=== PATIENT | male | born 1935 | race Caucasian/White ===

== ENCOUNTER → 2017-08-22 | Outpatient (CLI) | payer OTHER ==
[~2017-08-22] MED LIST: ALBU90OI INH; Atrovent Inha12.9 GM INH; DIPH50; ENAL5; PRED10 PO; Zofran Odt4 MG PO
[2017-08-22 13:32] LABS: BASOPHILS ABSOLUTE AUTO 0.06 K/mm3 (0.00-0.23); BASOPHILS PERCENT AUTO 1 % (0-2); EOSINOPHILS ABSOLUTE AUTO 0.13 K/mm3 (0.00-0.68); EOSINOPHILS PERCENT AUTO 2 % (0-6); Hematocrit 45.5 % (37.0-53.0); Hemoglobin 14.7 g/dL (13.5-17.5); IMMATURE GRAN ABSOLUTE AUTO 0.03 K/mm3 (0.00-0.10); IMMATURE GRAN PERCENT AUTO 0 % (0-1); LYMPHOCYTES ABSOLUTE AUTO 1.46 K/mm3 (0.84-5.20); LYMPHOCYTES PERCENT AUTO 16 % (21-46); MONOCYTES ABSOLUTE AUTO 0.79 K/mm3 (0.16-1.47); MONOCYTES PERCENT AUTO 9 % (4-13); Mean Corpuscular HGB 30.8 pg (26.0-34.0); Mean Corpuscular HGB Conc 32.3 g/dL (31.5-36.5); Mean Corpuscular Volume 95 fL (80-100); Mean Platelet Volume 10.1 fL (9.1-12.4); NEUTROPHILS ABSOLUTE AUTO 6.41 K/mm3 (1.96-9.15); NEUTROPHILS PERCENT AUTO 72 % (41-73); Platelet Count 245 K/mm3 (150-400); RDW Coefficient Variation 12.8 % (11.7-14.2); RDW Standard Deviation 45.1 fL (35.1-46.3); Red Blood Cell Count 4.78 M/mm3 (4.30-5.90); White Blood Cell Count 8.88 K/mm3 (4.00-11.30)
[2017-08-22 15:32] LABS: Alanine Aminotransfer (ALT/SGP 28 U/L (12-78); Albumin, Blood 3.4 g/dL (3.4-5.0); Albumin/Globulin Ratio 1.2 (0.8-1.8); Alk Phos 75 U/L (50-136); Anion Gap 5 mmol/L (6-16); Aspartate Aminotrans (AST/SGOT 20 U/L (12-37); Bilirubin, Total 0.7 mg/dL (0.1-1.0); Blood Urea Nitrogen 7 mg/dL (8-24); CO2, Blood 33 mmol/L (21-32); Calcium, Blood 8.7 mg/dL (8.5-10.1); Chloride, Blood 109 mmol/L (98-108); Creatinine, Blood 0.99 mg/dL (0.60-1.20); Globulin, Blood 2.8 g/dL (2.2-4.0); Glomerular Filtration Rate >60 (60-); Glucose, Blood 96 mg/dL (70-99); Potassium, Blood 3.8 mmol/L (3.5-5.5); Sodium, Blood 147 mmol/L (136-145); Total Protein, Blood 6.2 g/dL (6.4-8.2)
== END | disposition home or self-care (01) ==
LOC: LAB 09:51
PROVIDERS: Hospitalist
DX: R06.02 Shortness of breath (principal)
CPT/HCPCS: 80053; 85025

== ENCOUNTER 2017-09-04 19:43 | Emergency (ER) | payer OTHER ==
[~2017-09-04] VITALS: Ht 165.1 cm; Wt 56.7 kg
[~2017-09-04 19:43] MED LIST changes: -Zofran Odt4 MG PO
[2017-09-04 20:05] LABS: BASOPHILS ABSOLUTE AUTO 0.06 K/mm3 (0.00-0.23); BASOPHILS PERCENT AUTO 0 % (0-2); EOSINOPHILS ABSOLUTE AUTO 0.07 K/mm3 (0.00-0.68); EOSINOPHILS PERCENT AUTO 0 % (0-6); Hematocrit 46.3 % (37.0-53.0); Hemoglobin 14.8 g/dL (13.5-17.5); IMMATURE GRAN ABSOLUTE AUTO 0.09 K/mm3 (0.00-0.10); IMMATURE GRAN PERCENT AUTO 1 % (0-1); LYMPHOCYTES ABSOLUTE AUTO 1.26 K/mm3 (0.84-5.20); LYMPHOCYTES PERCENT AUTO 7 % (21-46); MONOCYTES ABSOLUTE AUTO 1.42 K/mm3 (0.16-1.47); MONOCYTES PERCENT AUTO 8 % (4-13); Mean Corpuscular HGB 30.7 pg (26.0-34.0); Mean Corpuscular Volume 96 fL (80-100); Mean Platelet Volume 9.6 fL (9.1-12.4); NEUTROPHILS ABSOLUTE AUTO 14.15 K/mm3 (1.96-9.15); NEUTROPHILS PERCENT AUTO 83 % (41-73); Platelet Count 244 K/mm3 (150-400); RDW Standard Deviation 46.2 fL (35.1-46.3); Red Blood Cell Count 4.82 M/mm3 (4.30-5.90); White Blood Cell Count 17.05 K/mm3 (4.00-11.30)
[2017-09-04 20:22] LABS: Alanine Aminotransfer (ALT/SGP 37 U/L (12-78); Albumin, Blood 3.5 g/dL (3.4-5.0); Alk Phos 86 U/L (50-136); Anion Gap 5 mmol/L (6-16); Aspartate Aminotrans (AST/SGOT 34 U/L (12-37); Bilirubin, Total 0.6 mg/dL (0.1-1.0); Blood Urea Nitrogen 14 mg/dL (8-24); Bun/Creatinine Ratio 12.8 (12.0-20.0); CO2, Blood 35 mmol/L (21-32); Calcium, Blood 8.7 mg/dL (8.5-10.1); Chloride, Blood 106 mmol/L (98-108); Creatinine, Blood 1.09 mg/dL (0.60-1.20); Globulin, Blood 3.5 g/dL (2.2-4.0); Glomerular Filtration Rate >60 (60-); Glucose, Blood 128 mg/dL (70-99); Potassium, Blood 3.6 mmol/L (3.5-5.5); Sodium, Blood 146 mmol/L (136-145)
[2017-09-04 21:11] LABS: Influenza A Negative (NEGATIVE); Influenza B Negative (NEGATIVE)
[2017-09-04] MEDS ORDERED: Zofran Odt4 MG PO (22:13)
== END 2017-09-04 22:36 | disposition home or self-care (01) ==
LOC: ER 19:43
PROVIDERS: Emergency Medicine
DX: K52.9 Noninfective gastroenteritis and colitis, unspecified (principal); Z88.8 Allergy status to other drugs, medicaments and biological substances; Z79.899 Other long term (current) drug therapy; Z79.52 Long term (current) use of systemic steroids; I10 Essential (primary) hypertension; J44.9 Chronic obstructive pulmonary disease, unspecified
CPT/HCPCS: 80053; 81000; 83690; 85025; 87804; 96361; 96374; 99283; J2405; J7030

== ENCOUNTER → 2018-07-20 | Outpatient (CLI) | payer OTHER ==
[~2018-07-20] MED LIST changes: +Zofran Odt4 MG PO
== END | disposition home or self-care (01) ==
LOC: PLD 07:05 → LAB SHORT 07:05
DX: K11.8 Other diseases of salivary glands (principal)
CPT/HCPCS: 88173

== ENCOUNTER → 2018-09-03 | Outpatient (CLI) | payer OTHER ==
[2018-09-03 17:38] LABS: BASOPHILS ABSOLUTE AUTO 0.04 K/mm3 (0.00-0.23); BASOPHILS PERCENT AUTO 0 % (0-2); EOSINOPHILS ABSOLUTE AUTO 0.01 K/mm3 (0.00-0.68); EOSINOPHILS PERCENT AUTO 0 % (0-6); Hematocrit 47.4 % (37.0-53.0); Hemoglobin 15.2 g/dL (13.5-17.5); IMMATURE GRAN ABSOLUTE AUTO 0.05 K/mm3 (0.00-0.10); IMMATURE GRAN PERCENT AUTO 1 % (0-1); LYMPHOCYTES ABSOLUTE AUTO 1.84 K/mm3 (0.84-5.20); LYMPHOCYTES PERCENT AUTO 17 % (21-46); MONOCYTES ABSOLUTE AUTO 0.43 K/mm3 (0.16-1.47); MONOCYTES PERCENT AUTO 4 % (4-13); Mean Corpuscular HGB Conc 32.1 g/dL (31.5-36.5); Mean Corpuscular Volume 97 fL (80-100); Mean Platelet Volume 10.1 fL (9.1-12.4); NEUTROPHILS ABSOLUTE AUTO 8.42 K/mm3 (1.96-9.15); NEUTROPHILS PERCENT AUTO 78 % (41-73); Platelet Count 279 K/mm3 (150-400); RDW Coefficient Variation 13.3 % (11.7-14.2); RDW Standard Deviation 47.6 fL (35.1-46.3); Red Blood Cell Count 4.91 M/mm3 (4.30-5.90); White Blood Cell Count 10.79 K/mm3 (4.00-11.30)
[2018-09-03 17:51] LABS: Alanine Aminotransfer (ALT/SGP 22 U/L (12-78); Albumin, Blood 3.4 g/dL (3.4-5.0); Alk Phos 71 U/L (50-136); Anion Gap 7 mmol/L (6-16); Aspartate Aminotrans (AST/SGOT 19 U/L (12-37); Bilirubin, Total 0.6 mg/dL (0.1-1.0); Blood Urea Nitrogen 6 mg/dL (8-24); Bun/Creatinine Ratio 5.7 (12.0-20.0); CO2, Blood 32 mmol/L (21-32); Calcium, Blood 8.2 mg/dL (8.5-10.1); Chloride, Blood 105 mmol/L (98-108); Creatinine, Blood 1.05 mg/dL (0.60-1.20); Globulin, Blood 3.3 g/dL (2.2-4.0); Glomerular Filtration Rate >60 (60-); Glucose, Blood 121 mg/dL (70-99); Potassium, Blood 3.6 mmol/L (3.5-5.5); Prostate Specific Antigen 0.496 ng/mL (0.000-4.000); Sodium, Blood 144 mmol/L (136-145); Total Protein, Blood 6.7 g/dL (6.4-8.2)
== END | disposition home or self-care (01) ==
LOC: LAB 17:28 → LAB SHORT 17:28
PROVIDERS: Hospitalist
DX: Z12.5 Encounter for screening for malignant neoplasm of prostate (principal); I10 Essential (primary) hypertension
CPT/HCPCS: 80053; 85025; G0103

== ENCOUNTER 2019-01-16 12:00 | Emergency (ER) | payer OTHER ==
[~2019-01-16] VITALS: Ht 165.1 cm; Wt 57.1 kg
[~2019-01-16 12:00] MED LIST changes: +ENAL10 PO; -ENAL5; -PRED10 PO
[2019-01-16 12:23] LABS: BASOPHILS ABSOLUTE AUTO 0.05 K/mm3 (0.00-0.23); BASOPHILS PERCENT AUTO 0 % (0-2); EOSINOPHILS ABSOLUTE AUTO 0.11 K/mm3 (0.00-0.68); EOSINOPHILS PERCENT AUTO 1 % (0-6); Hematocrit 45.5 % (37.0-53.0); Hemoglobin 14.5 g/dL (13.5-17.5); IMMATURE GRAN ABSOLUTE AUTO 0.05 K/mm3 (0.00-0.10); IMMATURE GRAN PERCENT AUTO 0 % (0-1); LYMPHOCYTES ABSOLUTE AUTO 1.52 K/mm3 (0.84-5.20); LYMPHOCYTES PERCENT AUTO 11 % (21-46); MONOCYTES ABSOLUTE AUTO 1.03 K/mm3 (0.16-1.47); MONOCYTES PERCENT AUTO 8 % (4-13); Mean Corpuscular HGB 31.2 pg (26.0-34.0); Mean Corpuscular HGB Conc 31.9 g/dL (31.5-36.5); Mean Corpuscular Volume 98 fL (80-100); Mean Platelet Volume 10.3 fL (9.1-12.4); NEUTROPHILS ABSOLUTE AUTO 10.85 K/mm3 (1.96-9.15); NEUTROPHILS PERCENT AUTO 80 % (41-73); Platelet Count 205 K/mm3 (150-400); RDW Coefficient Variation 13.2 % (11.7-14.2); RDW Standard Deviation 47.3 fL (35.1-46.3); Red Blood Cell Count 4.65 M/mm3 (4.30-5.90); White Blood Cell Count 13.61 K/mm3 (4.00-11.30)
[2019-01-16 12:41] LABS: Alanine Aminotransfer (ALT/SGP 20 U/L (12-78); Albumin, Blood 3.2 g/dL (3.4-5.0); Albumin/Globulin Ratio 0.9 (0.8-1.8); Alk Phos 72 U/L (50-136); Anion Gap 5 mmol/L (6-16); Aspartate Aminotrans (AST/SGOT 20 U/L (12-37); Bilirubin, Total 0.7 mg/dL (0.1-1.0); Blood Urea Nitrogen 8 mg/dL (8-24); Bun/Creatinine Ratio 8.3 (12.0-20.0); CO2, Blood 32 mmol/L (21-32); Calcium, Blood 8.4 mg/dL (8.5-10.1); Chloride, Blood 107 mmol/L (98-108); Creatinine, Blood 0.96 mg/dL (0.60-1.20); Globulin, Blood 3.4 g/dL (2.2-4.0); Glomerular Filtration Rate >60 (60-); Glucose, Blood 126 mg/dL (70-99); Potassium, Blood 3.4 mmol/L (3.5-5.5); Sodium, Blood 144 mmol/L (136-145); Total Protein, Blood 6.6 g/dL (6.4-8.2); Troponin I <0.015 ng/mL (0.000-0.040)
[2019-01-16] MEDS ORDERED: Prednisone20 MG PO (14:08)
[2019-01-16] MEDS ORDERED: ALBU2.5V5 NEB (14:08)
== END 2019-01-16 15:00 | disposition home or self-care (01) ==
LOC: ER 12:00
PROVIDERS: Emergency Medicine
DX: J44.1 Chronic obstructive pulmonary disease with (acute) exacerbation (principal); I10 Essential (primary) hypertension; Z88.8 Allergy status to other drugs, medicaments and biological substances; Z79.899 Other long term (current) drug therapy; Z79.52 Long term (current) use of systemic steroids
CPT/HCPCS: 36415; 71046; 80053; 83880; 84484; 85025; 93005; 93010; 94640; 96374; 99285-25; J2930

== ENCOUNTER 2019-01-18 08:50 | Inpatient (IN) | payer OTHER ==
[~2019-01-18] VITALS: Ht 165.1 cm; Wt 55.2 kg
[~2019-01-18 08:50] MED LIST changes: +ALBU2.5V5 NEB; +Prednisone20 MG PO
[2019-01-18 09:13] LABS: BASOPHILS ABSOLUTE AUTO 0.02 K/mm3 (0.00-0.23); BASOPHILS PERCENT AUTO 0 % (0-2); EOSINOPHILS PERCENT AUTO 0 % (0-6); IMMATURE GRAN PERCENT AUTO 1 % (0-1); LYMPHOCYTES ABSOLUTE AUTO 2.72 K/mm3 (0.84-5.20); LYMPHOCYTES PERCENT AUTO 17 % (21-46); MONOCYTES ABSOLUTE AUTO 1.28 K/mm3 (0.16-1.47); MONOCYTES PERCENT AUTO 8 % (4-13); Mean Corpuscular HGB 30.9 pg (26.0-34.0); Mean Corpuscular HGB Conc 31.9 g/dL (31.5-36.5); Mean Corpuscular Volume 97 fL (80-100); Mean Platelet Volume 10.3 fL (9.1-12.4); NEUTROPHILS ABSOLUTE AUTO 12.17 K/mm3 (1.96-9.15); NEUTROPHILS PERCENT AUTO 75 % (41-73); Platelet Count 218 K/mm3 (150-400); RDW Coefficient Variation 13.2 % (11.7-14.2); RDW Standard Deviation 47.5 fL (35.1-46.3); Red Blood Cell Count 4.86 M/mm3 (4.30-5.90); White Blood Cell Count 16.29 K/mm3 (4.00-11.30)
[2019-01-18 09:28] LABS: Alanine Aminotransfer (ALT/SGP 22 U/L (12-78); Albumin, Blood 3.1 g/dL (3.4-5.0); Albumin/Globulin Ratio 0.8 (0.8-1.8); Alk Phos 66 U/L (50-136); Anion Gap 6 mmol/L (6-16); Aspartate Aminotrans (AST/SGOT 24 U/L (12-37); Bilirubin, Total 0.8 mg/dL (0.1-1.0); Blood Urea Nitrogen 13 mg/dL (8-24); CO2, Blood 31 mmol/L (21-32); Calcium, Blood 8.4 mg/dL (8.5-10.1); Chloride, Blood 108 mmol/L (98-108); Creatinine, Blood 1.08 mg/dL (0.60-1.20); Globulin, Blood 3.7 g/dL (2.2-4.0); Glomerular Filtration Rate >60 (60-); Glucose, Blood 124 mg/dL (70-99); Potassium, Blood 3.4 mmol/L (3.5-5.5); Sodium, Blood 145 mmol/L (136-145); Total Protein, Blood 6.8 g/dL (6.4-8.2)
[2019-01-18] MEDS ORDERED: BUDE10.22 INH (11:59)
--- NOTE | 2019-01-18 12:00 | NUR ---
ADMISSION NOTE RECEIVED REPORT FROM ALISON, ED RN, AND PT TRANSFERRED TO PCU ROOM 3.
--- NOTE | 2019-01-18 13:00 | NUR ---
ECHO AT BEDSIDE.
[2019-01-18] MEDS ORDERED: PRED1 PO (17:32)
[2019-01-19 04:19] LABS: Hematocrit 44.8 % (37.0-53.0); Hemoglobin 14.7 g/dL (13.5-17.5); Mean Corpuscular HGB 31.3 pg (26.0-34.0); Mean Corpuscular HGB Conc 32.8 g/dL (31.5-36.5); Mean Corpuscular Volume 95 fL (80-100); Mean Platelet Volume 10.2 fL (9.1-12.4); Platelet Count 211 K/mm3 (150-400); RDW Coefficient Variation 13.2 % (11.7-14.2); RDW Standard Deviation 46.8 fL (35.1-46.3); White Blood Cell Count 13.47 K/mm3 (4.00-11.30)
[2019-01-19 04:37] LABS: Anion Gap 5 mmol/L (6-16); Blood Urea Nitrogen 16 mg/dL (8-24); Bun/Creatinine Ratio 16.7 (12.0-20.0); CO2, Blood 30 mmol/L (21-32); Calcium, Blood 7.9 mg/dL (8.5-10.1); Chloride, Blood 110 mmol/L (98-108); Creatinine, Blood 0.96 mg/dL (0.60-1.20); Glomerular Filtration Rate >60 (60-); Glucose, Blood 152 mg/dL (70-99); Sodium, Blood 145 mmol/L (136-145)
--- NOTE | 2019-01-19 07:15 | NUR ---
RECEIVED REPORT FROM CINDY SHARMA, AND ASSUMED CARE OF PT.
--- NOTE | 2019-01-19 07:25 | NUR ---
PCU NOC SHIFT SUMMARY PATIENT REMAINS ALERT AND ORIENTED X4 T/O SHIFT. DENIES ANY ACUTE PAIN T/O SHIFT. PATIENT BECOMES ANXIOUS AT TIMES AND EXPERIENCE SOB BUT DOES NOT DESATURATE. PATIENT EDUCATED TO FLUTTER VALVE AND PIERCED LIP BREATHING. SKIN INTACT WITH MILD BRUISING AND SCATTERED SCABS TO UPPER EXTREMETIES. PATIENT REMAINS IN NSR IN THE 70'S T/O SHIFT WITH NO ACUTE EVENTS NOTED PER DISTRIBUTION SYSTEMS SERVICEPERSON. REPORTED OFF TO DAYSHIFT RN.
--- NOTE | 2019-01-19 08:00 | NUR ---
DR. CASTILLO AT BEDSIDE FOR EVALUATION.
--- NOTE | 2019-01-19 12:46 | NUR ---
PT C/O LEFT FLANK AREA PAIN, NOTED SWOLLEN AREA WITH A LARGE BRUISE. PT STATED HE COUGHED HARD A FEW DAYS AGO WHILE HE WAS AT HOME AND HE FELT A PULL. THE SIDE HAS BEEN PAINFUL SINCE BUT MUCH MORE PAINFUL AT THIS TIME. REPORTED TO DR. CASTILLO, NEW ORDER TO DC LOVENOX, APPLY SCD'S, APPLY ICE, AND CONTINUE TO ASSESS.
--- NOTE | 2019-01-19 14:04 | NUR ---
REPORT GIVEN TO CLAUDIA, WATER TRAINER ON SURGICAL FLOOR. CLAUDIA TOOK REPORT FOR CINDY OLIVO, WHOM WILL ASSUME CARE OF PT WHEN TRANSFERRED TO ROOM 226.
--- NOTE | 2019-01-19 14:18 | NUR ---
PT TRANSFERRED TO ROOM 226 VIA HOSPITAL BED WITH UROLOGY SURGEON'S.
--- NOTE | 2019-01-19 14:40 | NUR ---
ARRIVAL TO SURGICAL UNIT PT ARRIVES VIA BED. RESTING ON R SIDE WITH ICE PACK ON L FLANK. BRUISING OUTLINED TO TRACK CHANGES. SWELLING NOTED IN L FLANK. C/O SIGNIFICANT PAIN. MEDICATED WITH TYLENOL.
--- NOTE | 2019-01-19 19:20 | NUR ---
SHIFT SUMMARY PT DID GET RELIEF FROM LIDOCAINE PATCH, NO INCREASED BRUISING OR SWELLING. POOR APPETITE, IVF INFUSING. NON-PRODUCTIVE COUGH. 2L NC.
--- NOTE | 2019-01-20 03:49 | NUR ---
SUMMARY: PT ADMITTED FOR NSTEMI, LLL PNEUMONIA. NO ACUTE CHANGE TONIGHT. VSS, SPO2 STABLE ON 1L O2, SOB ON EXERTION. BREATHING TREATMENTS PRN AND FLUTTER VALVE ENCOURAGED, PT REPORTS COUGHING UP SOME MUCUS. TELE WNL, DENIES CHEST PAIN. NO SAFETY CONCERNS AT THIS TIME
--- NOTE | 2019-01-20 16:58 | NUR ---
SHIFT SUMMARY 83 YR OLD MALE ADMITTED FOR NSTEMI. FULL CODE. LLL PNEUMONIA. 1.5 LPM O2. SOB W/ACTIVITY. BRUISE ON LEFT FLANK IS OUTLINED - LOVENOX IS DC'D. REGULAR DIET. TELE IS MONITORING VIA PCU (80 BPM W/FREQUENT PAC'S, OCCASIONAL PVC'S). ROOM AIR AT HOME. HX: COPD, HTN. IV ANTIBIOTICS ARE SCHEDULED. PT REFUSED BOWEL CARE EARLIER, AFTER HE REQUESTED IT. WILL TRY AGAIN. PT IS WORKING WITH PT.
--- NOTE | 2019-01-20 18:23 | NUR ---
PT REFUSING BOWEL CARE TODAY STATES HE PREFERS TO BEGIN BOWEL CARE TOMORROW MORNING.
--- NOTE | 2019-01-21 00:58 | NUR ---
SOB: PT CALLED OUT, FOUND SITTING UP ON SIDE OF BED, VERY SOB. SATS 87% ON 1.5LNC, TELE CALLED [T HR 150'S. PT DENEID CP. LUNGS TIGHT AND WHEEZY T/O. O2 INC TO 3L, SATS INC TO 96%. PT REP SOB IMPROVING, DECINED TX, PT EDUCATED AND ENCOURAGED TO HAVE TX R/T SOB AND INC WOB, PT AGREEABLE, RT IN ROOM FOR TX. HR TRENDING DOWN 120'S WHEN TX STARTED. WILL CONT TO CLOSELY MONITOR.
--- NOTE | 2019-01-21 01:25 | NUR ---
HEART RATE: PT HEART RATE SUSTAINING 140-150'S. PT DENIES CP/PRESSURE, REMAINS SOB ALTHOGH REP SOB IS IMPROVING. CALL PLACED TO HOSPITALIST FOR UPDATE ON PT CONDITION. NEW ORDERS FOR LABS AND EKG AND TO CONT TO MONITOR. AUGUSTA MCKINNON MD ROUNDING.
--- NOTE | 2019-01-21 01:50 | NUR ---
PT REP SOB SLOWLY IMPROVING. EKG COMPLETED, AWAITING LAB DRAW.
--- NOTE | 2019-01-21 02:05 | NUR ---
DR LECHUGA IN FOR UPDATE ON PT AND T OREVIEW EKG. PT VITALS AND MEDS REV W/MD. NEW ORDER FOR 1X DOSE OF IV LOPRESSOR.
[2019-01-21 02:50] LABS: Anion Gap 5 mmol/L (6-16); Blood Urea Nitrogen 23 mg/dL (8-24); Bun/Creatinine Ratio 24.9 (12.0-20.0); CO2, Blood 33 mmol/L (21-32); Calcium, Blood 8.1 mg/dL (8.5-10.1); Chloride, Blood 106 mmol/L (98-108); Creatinine, Blood 0.92 mg/dL (0.60-1.20); Glomerular Filtration Rate >60 (60-); Glucose, Blood 198 mg/dL (70-99); Magnesium, Blood 2.8 mg/dL (1.6-2.4); Potassium, Blood 3.9 mmol/L (3.5-5.5); Sodium, Blood 144 mmol/L (136-145)
--- NOTE | 2019-01-21 06:20 | NUR ---
PT BECAME HYPOXIC (87% ON 1.5L) HR CONVERTED TO AFIB UP TO 150'S (SEE PREVIOUS NOTES). PT REMAINS VERY SOB W/MILD EXERTION, LUNGS TIGHT/WHEEZY T/O. PT DENIED CP/PRESSURE. HR TRENDING AFIB LOW 100'S THIS AM. O2 INC TO 2L, SATS REMAINING >90% W/LOOSE MIN PROD COUGH. BREATHING TX PER RT W/REP RELIEF AFTER. PO INTAKE ENC, PT REP POOR PO R/T INC WOB W/EATING, ENSURE PROVIDED. PT USING URINAL TO VOID, IS USING CALL LIGHT FOR ASSISTANCE, WILL CONT TO MONITOR UNTIL REP GIVEN TO ONCOMING RN.
--- NOTE | 2019-01-21 09:09 | NUR ---
NOTIFIED BY TELE THAT PT CONVERTED BACK TO SINUS RHYTHM AT 902
--- NOTE | 2019-01-21 17:06 | NUR ---
SUMMARY PT CONVERTED FROM AFIB AT APPROXIMATELY 0903 THIS AM PER TELE WEIGHT LOSS COUNSELOR. THIS AFTERNOON, CALLED TO ADVISE PT TRENDED DOWN TO 57; PT WAS AT REST AT TIME. VSS. EKG BEING PERFORMED AT THIS TIME SHOWS SINUS RHYTHM W/FREQUENT PVCS. PT BECOMES EASILY FATIGUED AND SOB W/EXERTION. WORKED W/THERAPY THIS SHIFT. NOW RESTING IN BED. PLEASANT AND COOPERATIVE.
--- NOTE | 2019-01-21 18:34 | NUR ---
SOB PT REQUESTED BREATHING TX, STATING FEELS SOB. WHEEZING UPON AUSCULTATION. REQUESTED BREATHING TX. 02 SATS 94% ON 2L. BOOSTED PT UP IN BED. CALL LIGHT IN REACH. AWAITING RT.
--- NOTE | 2019-01-22 05:24 | NUR ---
SHIFT SUMMARY LYING IN SEMI FOWLERS WHILE RESTING WITH EYES CLOSED. DENIES PAIN OR DISCOMFORT AT THIS TIME. HAS BEEN GIVEN PRN BREATHING TREATMENTS X2 THIS SHIFT. NO FURTHER CHANGES SINCE START OF SHIFT. SAFETY MEASURES IN PLACE. WILL CONTINUE TO MONITOR.
--- NOTE | 2019-01-22 17:17 | NUR ---
SUMMARY NO ACUTE CHANGES T/O SHIFT. PT SAT UP IN CHAIR, AMBULATED INTO RESTROOM AND WORKED W/THERAPY THIS SHIFT. TOOK A SHORT NAP THIS AFTERNOON. DENIES ANY NEEDS AT THIS TIME. CALL LIGHT IN REACH.
--- NOTE | 2019-01-23 06:48 | NUR ---
SHIFT SUMMARY: NO SIGNIFICANT CHANGES OVER NIGHT. RECIEVING PRN BREATHING TX T/O SHIFT. C/O OF SOB UPON EXERTION. WHEEZING HEARD IN LUNGS UPON AUSCULATION. SATS STABLE ON 2L O2 PER NC. SATS IMPROVED TO 98% THIS MORNING AFTER PT WAS ABLE TO COUGH UP MODERATE AMOUNT OF MUCOUS. TELE SHOWS NSR WITH PVC'S. PT DENIES CP T/O SHIFT. VOIDING IN URINAL.
--- NOTE | 2019-01-23 07:05 | NUR ---
recvd report from previous shift rn sharla, pt sleeping in bed, bed rails up x 2, call light within reach, bed in lowest position, NC in place at 2l
--- NOTE | 2019-01-23 10:55 | NUR ---
DR SOL ROUNDED ON PT
--- NOTE | 2019-01-23 17:10 | NUR ---
shift summary: vss, no acute changes, pt remained on 2l NC with SOB with exertion, received breathing tx x 3 this shift. pt worked wiht physical therapy, ambulated in hallway with fww. pt remained a/0, pleasant/cooperative, urine output >400 ml this shift. pt tolerated PO intake, denies nausea, states his appetite is not "what it usually is." pt denies chest pain. hematoma from L flank radiating anteriorly to the R lower quadrant, borders delineated. Hospitalist discontinued plavix and will recheck tomorrow. Lungs remained course with expiratory wheezes in all lobes.
--- NOTE | 2019-01-24 07:41 | NUR ---
SHIFT SUMMARY PT RESTED WELL T/O NIGHT. AAOX4/ANXIOUS AT TIMES. LUNG SOUNDS COARSE WITH INTERMITTENT EXP WHEEZING THIS SHIFT, BREATHING TX PRN ADMINISTERED. SMALL AMOUNTS OF PO INTAKE + CLEAR / YELLOW URINE OUT. HEMATOMA TO LEFT FLANK + ABD OUTLINED BY PREVIOUS RN, NO CHANGE THIS SHIFT. HOLDING PLAVIX. PT UP WATCHING TV THIS AM. REPORT TO DAY SHIFT RN. CALL LIGHT WITHIN PT'S REACH.
[2019-01-24 08:08] LABS: BASOPHILS ABSOLUTE AUTO 0.11 K/mm3 (0.00-0.23); BASOPHILS PERCENT AUTO 1 % (0-2); EOSINOPHILS PERCENT AUTO 0 % (0-6); Hematocrit 35.9 % (37.0-53.0); Hemoglobin 11.6 g/dL (13.5-17.5); IMMATURE GRAN ABSOLUTE AUTO 0.88 K/mm3 (0.00-0.10); IMMATURE GRAN PERCENT AUTO 4 % (0-1); LYMPHOCYTES ABSOLUTE AUTO 0.94 K/mm3 (0.84-5.20); LYMPHOCYTES PERCENT AUTO 4 % (21-46); MONOCYTES ABSOLUTE AUTO 1.28 K/mm3 (0.16-1.47); MONOCYTES PERCENT AUTO 5 % (4-13); Mean Corpuscular HGB 30.8 pg (26.0-34.0); Mean Corpuscular HGB Conc 32.3 g/dL (31.5-36.5); Mean Corpuscular Volume 95 fL (80-100); Mean Platelet Volume 10.7 fL (9.1-12.4); NEUTROPHILS ABSOLUTE AUTO 21.11 K/mm3 (1.96-9.15); NEUTROPHILS PERCENT AUTO 87 % (41-73); NRBC ABSOLUTE 0.02 K/mm3 (0.00-0.02); NRBC Auto 0.1 /100 WBC (0.0-0.2); Platelet Count 237 K/mm3 (150-400); RDW Coefficient Variation 12.7 % (11.7-14.2); RDW Standard Deviation 44.4 fL (35.1-46.3); Red Blood Cell Count 3.77 M/mm3 (4.30-5.90); White Blood Cell Count 24.32 K/mm3 (4.00-11.30)
--- NOTE | 2019-01-24 10:15 | NUR ---
V-TACH TELE REPORTS 13 BEAT RUN OF V-TACH, WENT DIRECTLY TO ROOM. PT SITTING AT SIDE OF BED, STATES HE HAD JUST SAT UP AT EDGE. DENIED CP, INCREASE SOB, OR PALPTATIONS OR DIZZINESS. UPDATED WHEN ROUNDS MADE.
--- NOTE | 2019-01-24 17:17 | NUR ---
SHIFT SUMMARY PT HAS DONE WELL TODAY. LUNGS COURSE/WHEEZY T/O SHIFT WITH PROD COUGH. NO CHANGES IN BRUISING, CONTINUES TO BE WITHIN OUTLINED AREAS. CHEST XRAY COMPLETED.
--- NOTE | 2019-01-24 17:47 | NUR ---
SHIFT SUMMARY PT HAS BEEN DECONDITIONED TODAY, HOLDS ONTO FURNITURE TO GET TO BATHROOM WITH DYSPNEA NOTED. CHEST XRAY COMPLETED. BRUISING APPROX 2-3 INCHES PAST OUTLINE THIS AFTERNOON ON BACK BUT NOT DARK AND APPEARS TO BE SPLOTCHY INSTEAD OF SOLID.
--- NOTE | 2019-01-24 21:15 | NUR ---
ATTEMPTED TO CALL FOR T/F REPORT BUT NO ANSWER. WILL TRY AGAIN MOMENTARILY.
--- NOTE | 2019-01-24 21:51 | NUR ---
REPORT RECIEVED FROM ROMMEL MEJIA RN AND AWAITING PT T/F TO ROOM 304.
--- NOTE | 2019-01-24 22:01 | NUR ---
PT T/F TO ROOM 304. THIS RN AGREES TO ROMMEL MEJIA RN'S, ASSESSMENT FINDINGS. SUCTION SETUP IN ROOM, PT SELF SUCTIONS AD MYNOR. PT REMAINS ON 2L O2 VIA NC W/SOB ON EXERTION. PULM TOILET ENCOURAGED. PT STILL REFUSING SCD'S. PT IS NSR AT 75 BPM PER PCU BOOM STORAGE. NO COMPLAINTS AT THIS TIME. WCTM.
--- NOTE | 2019-01-25 06:28 | NUR ---
SUMMARY: A/OX4, CALLS APPROPRIATELY AND 1-2 ASSIST OOB. PT IS ABLE TO USE URINAL INDEPENDENTLY AND ALERTS STAFF IF ASSIST REQUIRED. HE'S SOB W/EXERTION AND REMAINS ON 2L O2 VIA NC. COARSE LS PERSIST AND PULM TOILET ENCOURAGED. PT SELF SUCTIONS AND USES FLUTTER AD MYNOR. RT PROVIDES BX MEDS. HE DENIED PAIN AND COMPLAINTS AND DENIED NEEDS. SX RN REPORTED THAT PT IS SPECIFIC W/SCHEDULED MEDS, NO PRN WERE REQUIRED FROM THIS RN. BRUISING TO FLANK/TORSO AND ABDO PERSISTS AND HAS EXTENDED BEYOND DEMARKATED REGION. CHEMICAL DVT PROPHYLAXIS HAS BEEN CANCELLED AT THIS TIME AND PT IS REFUSING SCD'S. PT REMAINS ON TELEMETRY IN NSR, RATE 70'S-80'S, NO ECTOPIES THIS SHIFT. NO ACUTE CHANGE, VSS AND AFEBRILE. WCTM AND REPORT TO DAY RN.
--- NOTE | 2019-01-25 07:02 | NUR ---
ASSUMED CARE OF PT- RECIEVED REPORT PARTIALLY AT THE BEDSIDE PT SLEEPING SOUNDLY. PER REPORT PT USES SUCTION INDEPENDENTLY. STAFF ARE TO ENCOURAGE PULMONARY TOILET. PT HAD A RUN OF SVT YESTERDAY, CURRENTLY ON TELE AT THIS TIME. PER REPORT PT HAS BRUISING ON THE ABDOMEN RELATED TO LOVENOX, PLAVIX AND ASPIRIN ALL HAVE BEEN STOPPED AT THIS TIME. BRUISING IS SPREADING BUT BECOMING MORE DIFFUSE PER REPORT FROM NIGHT CINDY HARTMANN. WILL CTM, NO CURRENT S&S OF PAIN OR DISTRESS RESP E/U. PT IN BED WITH HOB ELEVATED CALL LIGHT IN REACH.
--- NOTE | 2019-01-25 12:19 | NUR ---
Initial palliative care consult: Juan Jose is an 83 year old gentleman who lives alone in an apartment with his two cats. He sold his long time home recently as he was unable to keep up his house. He was in May 2014. He has a step dtr who lives in the [facility] area who is planning to visit this week. He has a history of COPD, HTN and Crohn's disease. He was seen in the ER on 01/16/19 but was discharged home. He is SOB with talking. He is currently on oxygen via NC. He has dark purple bruising around his torso which he states is from a blood thinning medication he recently took but is not currently taking. He reports he is enjoying the ensure shakes as it is easier for him to take these than to eat a meal due to his SOB and dentures. He denies pain at this time. He c/o fatigue and large amounts of mucous build up, especially in the mornings when he first wakes up. He gets around at home with a walker, however he becomes SOB with this exertion. 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 He has a neighbor friend, Starr, who occasionally helps out. He is interested in extra help at home. Reviewed CM notes and it appears pt was given the resources for in home care options. He is currently able to manage his medications and plans to continue to do so. He uses inhalers and has a nebulizer machine at home. He was not on any home O2 prior to this admit. COPD education given and pt allowed to ask questions. Printed COPD material provided. Discussed options for short term and terminal gauger planning. He would like to go home with services unless therapy recommends a short term SNF for rehab and strengthening. Discussed code status and advanced directives. He reports that he has been thinking about what treatments he would want and not want to receive. Explained that he is currently a full code and what that meant. Discussed DNR option and he said that sounded like a better option, however at this time he doesn't want to request a DNR status. He reports that his step-daughter is coming into town this week and he would like to discuss AD and POLST options with her as he would like to have her involved in some of those decisions. AD and POLST form provided. Pt instructed to contact nursing if he decides he would like to fill these forms out during his hospital stay and needs assistance. Discussed self care options for assisting with energy conservation, thinning of secretions and secretion management, and COPD education. LM for Mendoza, COPD educator, to see if he would be able to see pt as an outpatient. LM to update bedside nurse re: visit. PC will plan to follow up with pt re: AD/POLST education and symptom management.
--- NOTE | 2019-01-25 19:38 | NUR ---
SHIFT SUMMARY- PT HAS HAD A DAY OF LIMITED CHANGE. PT BRUISING PURPLE AREA HAS SPREAD DOWN LOWER ON THE TORSO, HOWEVER THIS AREA REMAINS SOFT AND NON TENDER AT THIS TIME. REVIEWED THE BRUISING WITH NIGHT RN CHAPIN DURING BEDSIDE REPORT. PT ALERT AND ORIENTED, CALL LIGHT IN REACH, NO C/O PAIN, C/O SOB CALLED RT TO ADMINISTER A BREATHING Tx.
--- NOTE | 2019-01-26 06:22 | NUR ---
SUMMARY: A/OX4, CALLS APPROPRIATELY AND SPECIFIES NEEDS. PT STILL BECOMES SOB W/EXERTION BUT IS LESS DYSPNEIC SINCE COMMENCING PRN ROBITUSSIN. PT IS USING FLUTTER, DEEP BX'S AND COUGHS INSTRUCTED, SELF SUCTIONS AD MYNOR AND FEELS LIKE SECRETIONS "ARE FINALLY COMING UP" TO CLEAR AIRWAY MORE EFFECTIVELY. HE REMAINS ON 2L O2 VIA NC AND LS CONTINUE COARSE W/WHEEZES. LESS CRACKLES HEARD THIS AM THOUGH AND RT PROVIDED BX MEDS PER EMAR. BRUISING FROM PREVIOUS CHEMICAL DVT PROPHYLAXIS TO ABDO, FLANK, HIPS, BACK AND TORSO PERSISTS AND HAS EXTENDED OUTSIDE MARKED REGION BUT PERIMETERS ARE DIFFUSE AND SEEM TO BE IMPROVING. INNERMOST AREA REMAINGS FIRM BUT BECOMES SOFTER EXTENDING OUTWARD. PT REMAINS ON TELEMETRY IN NSR W/PAC'S AND PVC'S AT 70'S-80'S BPM. NO ACUTE CHANGES, VSS/AFEBRILE. WCTM AND REPORT TO DAY RN.
--- NOTE | 2019-01-26 16:04 | NUR ---
SHIFT SUMMARY PT SITTING UPRIGHT IN BED RECEIVING RT TX DURING SHIFT REPORT. ADMITTED FOR NSTEMI; RESOLVED PER REPORT. HX HTN AND COPD. LUNGS T/O WITH INSP/EXP WHEEZES, COARSE WET COUGH. SOB WITH ANY EXERTION, BUT IMPROVING. USING FLUTTER VALVE AT TIMES. PT ON 2L O2 AT START OF SHIFT, CURRENTLY DOWN TO 1L O2. PT UP TO EOB, SELF. USES URINAL AT BS. SEVERE BRUISING AROUND ABD AND TO BACK; CURRENTLY NOT ON ANTICOAG'S. BRUISED AREA ON L BACK FIRM IN CENTER, BUT IMPROVING PER REPORT. PT INCONTINENT OF URINE EARLY INTO SHIFT, MISSING URINAL. PT CLEANED AND ASSISTED TO CHAIR WHILE BED LINENS CHANGED. SOME PILLS OPENED AND PLACED ON APPLE SAUCE, OTHERS CUT INTO QUARTER SIZE PCS FOR PT TO SWALLOW. PT REPORTED SOFT FORMED BLACK STOOLS. DENIED PAIN, DENIED FURTHER NEEDS. CALL LT IN REACH. ABLE TO MAKE NEEDS KNOWN.
--- NOTE | 2019-01-27 03:09 | NUR ---
PT STARTED DEVELOPING CHEST PAIN STATING IT FEELS LIKE A TIGHTNESS ACROSS HIS CHEST WITH LIGHTNING BOLTS SHOCKS. VS DONE, HOSPITALIST CALLED, AND ALSO THIRD MILLER. ORDERS RECEIVED, NITRO GIVEN SL X2 DROPPING PTS B/P. CHARGE NURSE NOTIFIED, PT STILL WITH C/O CHEST PAIN. UNABLE TO GIVEN NITRO DUE TO LOW B/P. PT LYING ON LEFT SIDE B/P GRADUALLY COMES BACK UP, FENTANYL 25 MCG GIVEN FOR CONTINUED CHEST PAIN. ABLE TO GET PT TO LIE BACK IN BED ON BACK, CHEST PAIN GONE AND PT MORE RELAXED. PT INSTRUCTED TO RING IF CHEST PAIN COMES BACK OR IF NEEDING ANYTHING. WILL CONTINUE TO MONITOR.
--- NOTE | 2019-01-27 04:59 | NUR ---
SHIFT SUMMARY PT HAS HAD NO FURTHER EPISODES OF CHEST PAIN, HAS BEEN SLEEPING SINCE LYING PT BACK DOWN. OXYGEN REMAINS ON AT 1L/NC. TELEMETRY SHOWS NSR WITH PAC'S AT 70. WILL CONTINUE TO MONITOR.
[2019-01-27 09:22] LABS: Hematocrit 29.9 % (37.0-53.0); Hemoglobin 9.6 g/dL (13.5-17.5)
--- NOTE | 2019-01-27 13:03 | NUR ---
SHIFT SUMMARY PT SLEEPING DURING SHIFT REPORT D/T BEING AWAKE THRU OUT THE NIGHT WITH C/O CP. PT MEDICATED PER EMAR FOR C/O CP AND LATER REPORTED BEING "WIPED OUT". PT SLEPT FOR AWHILE BEFORE EATING BREAKFAST. REPORTED HIS "BREATHING IS BETTER THOUGH". LUNGS T/O IMPROVED; ONLY FAINT SCATTERED WHEEZES AND SLIGHTLY COARSE. PT REMAINS DOWN TO 1L O2. SITTING UP TO EOB INDEPENDANTLY, APPEARS TO BE FEELING BETTER THIS AFTERNOON. GI CONSULT ORDERED AND CALLED. DR VERA NOTIFIED @ 10:00 BY THIS RN AND AGAIN @ 10:35 BY AAYUSH RN. PT REPORTS BLACK STOOLS, BUT NOT OBSERVED BY THIS RN. PT'S STEP DAUGHTER FROM [employer] HERE TO VISIT. PT SIGNED CONSENT FOR INFO TO BE GIVEN TO HER WHEN SHE CALLS FOR UPDATES. PT DENIES FURTHER NEEDS AT THIS TIME. STANDS AT BS TO USE URINAL. CALL LT IN REACH.
[2019-01-27 15:07] LABS: Hematocrit 31.4 % (37.0-53.0); Hemoglobin 10.2 g/dL (13.5-17.5)
[2019-01-27 20:54] LABS: Hematocrit 28.3 % (37.0-53.0); Hemoglobin 8.9 g/dL (13.5-17.5)
[2019-01-28 03:15] LABS: Hematocrit 28.1 % (37.0-53.0); Mean Corpuscular HGB 31.6 pg (26.0-34.0); Mean Corpuscular Volume 99 fL (80-100); Mean Platelet Volume 10.8 fL (9.1-12.4); NRBC ABSOLUTE 0.03 K/mm3 (0.00-0.02); NRBC Auto 0.1 /100 WBC (0.0-0.2); Platelet Count 228 K/mm3 (150-400); RDW Coefficient Variation 12.6 % (11.7-14.2); RDW Standard Deviation 45.5 fL (35.1-46.3); Red Blood Cell Count 2.85 M/mm3 (4.30-5.90); White Blood Cell Count 23.95 K/mm3 (4.00-11.30)
[2019-01-28 03:31] LABS: Anion Gap 2 mmol/L (6-16); Blood Urea Nitrogen 24 mg/dL (8-24); Bun/Creatinine Ratio 23.5 (12.0-20.0); CO2, Blood 35 mmol/L (21-32); Calcium, Blood 7.7 mg/dL (8.5-10.1); Chloride, Blood 106 mmol/L (98-108); Creatinine, Blood 1.02 mg/dL (0.60-1.20); Glomerular Filtration Rate >60 (60-); Glucose, Blood 133 mg/dL (70-99); Potassium, Blood 4.2 mmol/L (3.5-5.5); Sodium, Blood 143 mmol/L (136-145)
[2019-01-28 03:32] LABS: BAND PERCENT MAN 1 % (0-8); BASOPHILS PERCENT MAN 0 % (0-2); EOSINOPHILS PERCENT MAN 0 % (0-6); LYMPHOCYTES ABSOLUTE MAN 0.47 K/mm3 (0.84-5.20); LYMPHOCYTES PERCENT MAN 2 % (21-46); MONOCYTES ABSOLUTE MAN 0.95 K/mm3 (0.16-1.47); MONOCYTES PERCENT MAN 4 % (4-13); MYELOCYTE ABSOLUTE MAN 0.23 K/mm3 (0.00-0.00); MYELOCYTE PERCENT MAN 1 % (0-0); NEUTROPHILS ABSOLUTE MAN 22.27 K/mm3 (1.96-9.15); SEG NEUTROPHILS PERCENT MAN 92 % (41-73); TOTAL CELLS COUNTED 100
--- NOTE | 2019-01-28 05:47 | NUR ---
SHIFT SUMMARY PT SLEPT WELL DURING THE NIGHT. OFFERS NO C/O'S PAIN THIS SHIFT. IV PROTONIX INFUSING PER PUMP WITHOUT DIFFICULTY. NO ACUTE EVENTS OVER NIGHT, WILL CONTINUE TO MONITOR.
[2019-01-28 09:22] LABS: Hematocrit 30.7 % (37.0-53.0); Hemoglobin 9.7 g/dL (13.5-17.5)
[2019-01-28 15:21] LABS: Hematocrit 30.1 % (37.0-53.0); Hemoglobin 9.6 g/dL (13.5-17.5)
--- NOTE | 2019-01-28 18:16 | NUR ---
SUMMARY PT SITTING UP IN THE CHAIR AT THE BEDSIDE, WATCHING TV AND EATING DINNER, PT USES HIS CALL LIGHT APPROPRIATELY, IS A 1 PERSON ASSIST, CONT TO BE ON 2L, PT DOES NOT WEAR O2 AT HOME, PT CONT TO HAVE BLACK STOOLS, NO S/S ACTIVE BLEEDING, NO COMPLAINTS, VSS, NO ACUTE CHANGES, WILL CONT TO MONITOR
[2019-01-28 20:57] LABS: Hematocrit 27.7 % (37.0-53.0)
[2019-01-29 03:21] LABS: Hematocrit 28.6 % (37.0-53.0); Hemoglobin 9.1 g/dL (13.5-17.5)
--- NOTE | 2019-01-29 05:40 | NUR ---
SHIFT SUMMARY PT SLEPT FAIR. OFFERS NO C/O'S DURING THE NIGHT. PT STATES HE HAS BEEN CAOUGHING UP SOME PHELGM DURING THE NIGHT. IV PROTONIX STOPPED AND PO PROTONIX STARTED THIS AM. NO ACUTE EVENTS NOTED DURING THE NIGHT, WILL CONTINUE TO MONITOR.
--- NOTE | 2019-01-29 17:19 | NUR ---
SUMMARY PT SITTING UP IN THE CHAIR AT THE BEDSIDE WATCHINH TV, PT HAS BEEN UP WORKING WITH PT/OT, TOR WELL, REMAINS ON 2L NC, COOPERATIVE WITH CARE, VSS, NO ACUTE CHANGES, WILL CONT TO MONITOR
[2019-01-30 05:00] LABS: BASOPHILS ABSOLUTE AUTO 0.04 K/mm3 (0.00-0.23); BASOPHILS PERCENT AUTO 0 % (0-2); EOSINOPHILS ABSOLUTE AUTO 0.01 K/mm3 (0.00-0.68); EOSINOPHILS PERCENT AUTO 0 % (0-6); Hematocrit 27.6 % (37.0-53.0); Hemoglobin 8.7 g/dL (13.5-17.5); IMMATURE GRAN ABSOLUTE AUTO 0.49 K/mm3 (0.00-0.10); IMMATURE GRAN PERCENT AUTO 3 % (0-1); LYMPHOCYTES ABSOLUTE AUTO 1.31 K/mm3 (0.84-5.20); LYMPHOCYTES PERCENT AUTO 8 % (21-46); MONOCYTES ABSOLUTE AUTO 1.11 K/mm3 (0.16-1.47); MONOCYTES PERCENT AUTO 7 % (4-13); Mean Corpuscular HGB 31.3 pg (26.0-34.0); Mean Corpuscular HGB Conc 31.5 g/dL (31.5-36.5); Mean Corpuscular Volume 99 fL (80-100); Mean Platelet Volume 10.7 fL (9.1-12.4); NEUTROPHILS ABSOLUTE AUTO 13.77 K/mm3 (1.96-9.15); NEUTROPHILS PERCENT AUTO 82 % (41-73); NRBC ABSOLUTE 0.06 K/mm3 (0.00-0.02); NRBC Auto 0.4 /100 WBC (0.0-0.2); Platelet Count 239 K/mm3 (150-400); RDW Coefficient Variation 13.4 % (11.7-14.2); RDW Standard Deviation 45.9 fL (35.1-46.3); Red Blood Cell Count 2.78 M/mm3 (4.30-5.90); White Blood Cell Count 16.73 K/mm3 (4.00-11.30)
[2019-01-30 05:26] LABS: Anion Gap 1 mmol/L (6-16); Blood Urea Nitrogen 17 mg/dL (8-24); Bun/Creatinine Ratio 14.8 (12.0-20.0); CO2, Blood 36 mmol/L (21-32); Calcium, Blood 7.7 mg/dL (8.5-10.1); Chloride, Blood 106 mmol/L (98-108); Creatinine, Blood 1.15 mg/dL (0.60-1.20); Glomerular Filtration Rate >60 (60-); Glucose, Blood 109 mg/dL (70-99); Potassium, Blood 3.6 mmol/L (3.5-5.5); Sodium, Blood 143 mmol/L (136-145)
--- NOTE | 2019-01-30 08:26 | NUR ---
SUMMARY THIS AM, PT REPORTED NOT SLEEPING WELL. UNCOMFORTABLE,ADDED EGG CRATE TO PT BED. AND PT OOB TO CHAIR PER HIS REQUEST
--- NOTE | 2019-01-30 18:18 | NUR ---
SHIFT SUMMARY: PT HAS BEEN A/O X 3 THIS SHIFT WITH NO C/O PAIN. PT WAS UP WALKING WITH THERAPY THIS AM. PT CONTINUES WITH BASELINE SOB WITH EXERTION AND ON 2LPM OF O2. PT DENIES N/V. PT CONTINUES TO USE CALL LIGHT FOR HELP WHEN NEEDED.
[2019-01-31 04:56] LABS: BASOPHILS ABSOLUTE AUTO 0.02 K/mm3 (0.00-0.23); BASOPHILS PERCENT AUTO 0 % (0-2); EOSINOPHILS ABSOLUTE AUTO 0.01 K/mm3 (0.00-0.68); EOSINOPHILS PERCENT AUTO 0 % (0-6); Hematocrit 27.8 % (37.0-53.0); Hemoglobin 8.8 g/dL (13.5-17.5); IMMATURE GRAN ABSOLUTE AUTO 0.35 K/mm3 (0.00-0.10); IMMATURE GRAN PERCENT AUTO 2 % (0-1); LYMPHOCYTES ABSOLUTE AUTO 1.01 K/mm3 (0.84-5.20); LYMPHOCYTES PERCENT AUTO 7 % (21-46); MONOCYTES ABSOLUTE AUTO 0.96 K/mm3 (0.16-1.47); MONOCYTES PERCENT AUTO 6 % (4-13); Mean Corpuscular HGB 31.4 pg (26.0-34.0); Mean Corpuscular HGB Conc 31.7 g/dL (31.5-36.5); Mean Corpuscular Volume 99 fL (80-100); Mean Platelet Volume 10.7 fL (9.1-12.4); NEUTROPHILS PERCENT AUTO 84 % (41-73); NRBC ABSOLUTE 0.03 K/mm3 (0.00-0.02); NRBC Auto 0.2 /100 WBC (0.0-0.2); Platelet Count 236 K/mm3 (150-400); RDW Coefficient Variation 13.9 % (11.7-14.2); RDW Standard Deviation 46.7 fL (35.1-46.3); White Blood Cell Count 14.95 K/mm3 (4.00-11.30)
[2019-01-31 05:30] LABS: Anion Gap 3 mmol/L (6-16); Blood Urea Nitrogen 17 mg/dL (8-24); Bun/Creatinine Ratio 14.2 (12.0-20.0); CO2, Blood 33 mmol/L (21-32); Calcium, Blood 7.4 mg/dL (8.5-10.1); Chloride, Blood 107 mmol/L (98-108); Glomerular Filtration Rate >60 (60-); Glucose, Blood 114 mg/dL (70-99); Potassium, Blood 3.6 mmol/L (3.5-5.5); Sodium, Blood 143 mmol/L (136-145)
--- NOTE | 2019-01-31 07:41 | NUR ---
01/31/19 0615 AWAKENED FOR AM MEDS. SLEPT WELL AFTER IV PAIN MED GIVEN FOR LOW BACK PAIN. VOIDING WELL. VITALS STABLE. SLEPT IN LOUNGE CHAIR FOR COMFORT.
--- NOTE | 2019-01-31 18:42 | NUR ---
SHIFT SUMMARY PATIENT HAS SAT IN CHAIR MUCH OF SHIFT. HE IS EAGER TO DISCHARGE HOME, OPEN TO SNF IF NEEDED TO BUILD ABILITIES TO BE HOME SAFE. D/C TELE AND IV. NO ACUTE ISSUES NOTED.
--- NOTE | 2019-01-31 23:48 | NUR ---
PT C/O SUDDEN ONSET ABDO PAIN AND NAUSEA. VSS AT THIS TIME. PT FEARS ALLERGIC REACTION TO TRAMADOL SINCE IT WAS THE FIRST TIME HE'D RECIEVED IT AND THE ONLY NEW MED. HE STATED CONSTIPATION IS A NONISSUE HE HAD 2 BM'S TODAY. ALERTED W/BENADRYL 25MG PO X1 RX'D AND ZOFRAN SWITCHED TO PO PRN SINCE PT HAS NO IV ACCESS ORDER. WILL MEDICATED WHEN AVAILABLE FROM PHARMACY.
--- NOTE | 2019-02-01 00:03 | NUR ---
ATTEMPTED TO GIVE PT ZOFRAN AND BENEDRYL AND SINCE RX WAS OBTAINED FOR MEDS D/T PT C/O POSSIBLE ALLERGIC REACTION TO TRAMDOL, PT USED BSC FOR MEDIUM FORMED BM AND PASSED FLATUS. PT IS NOW REPORTING THAT SYMPTOMS ARE SUBSIDING AND DENIES NEEDING MEDS AT THIS TIME.
--- NOTE | 2019-02-01 04:41 | NUR ---
SUMMARY: A/OX4, CALLS APPROPRIATELY AND SPECIFIES NEEDS. PT LIKES TO SIT IN CHAIR BUT BLE EDEMA NOTED SO LEG ELEVATION ENCOURAGED. HE DOESN'T LIKE TO RECLINE SO FLOOR STOOL/PILLOWS USED INSTEAD. HE USES URINAL AT EOB BY SELF BUT IS SBA TO BSC/TOILET. PT C/O BACK PAIN WHILE LAYING DOWN W/1ST DOSE TRAMADOL GIVEN D/T DAY RN REPORT THAT TYLENOL WASN'T VERY EFFECTIVE. HE HAD ABDO PAIN/NAUSEA AFTERWARD SO THOUGHT HE WAS HAVING ALLERGIC REACTION TO MED. ALERTED W/BENADRYL OT AND PO ZOFRAN RX'D. UPON OFFERING MEDS HE'D USED BSC W/CHARTER COORDINATOR ASSIST FOR BM WELL PASSING FLATUS. RELIEF WAS REPORTED SO HE DENIED NEEDING MEDS. HE RAMINS ON 1.5L O2 VIA NC BUT LS IMPROVING AND SOB IS BETTER. BRUISING PERSISTS TO TORSO/BACK/ABDO FROM PREVIOUSLY DC'D BLOOD THINNERS. NO ACUTE CHANGES, VSS/AFEBRILE. WCTM AND REPORT TO DAY RN.
[2019-02-01 05:08] LABS: Anion Gap 3 mmol/L (6-16); Blood Urea Nitrogen 16 mg/dL (8-24); Bun/Creatinine Ratio 14.2 (12.0-20.0); CO2, Blood 32 mmol/L (21-32); Calcium, Blood 7.8 mg/dL (8.5-10.1); Chloride, Blood 107 mmol/L (98-108); Creatinine, Blood 1.13 mg/dL (0.60-1.20); Glomerular Filtration Rate >60 (60-); Glucose, Blood 127 mg/dL (70-99); Potassium, Blood 3.8 mmol/L (3.5-5.5); Sodium, Blood 142 mmol/L (136-145)
[2019-02-01] MEDS ORDERED: ACET500 PO (13:29)
[2019-02-01] MEDS ORDERED: ALBU90OI INH (13:30)
[2019-02-01] MEDS ORDERED: ALBU2.5V5 INH (13:30)
[2019-02-01] MEDS ORDERED: ASPI81CH PO (13:31)
[2019-02-01] MEDS ORDERED: ATOR40TA PO (13:31)
[2019-02-01] MEDS ORDERED: DILT180 PO (13:32)
[2019-02-01] MEDS ORDERED: PANT40 PO (13:33)
--- NOTE | 2019-02-01 15:06 | NUR ---
PATIENT DISCHARGED AT 15:06.
== END 2019-02-01 14:56 | disposition home health service (06) | DRG 193 ==
LOC: ER 08:50 → MEDS 10:32 → PCU 10:32 → SURS 01-19 14:43 → MEDS 01-24 22:01 → ENPENDDIS 02-01 13:17 → MEDS 02-01 14:56
PROVIDERS: Emergency Medicine; Hospitalist; Internal Medicine; ADMIT Internal Medicine
DX: J18.1 Lobar pneumonia, unspecified organism (principal); I21.A1 Myocardial infarction type 2; J96.01 Acute respiratory failure with hypoxia; J44.1 Chronic obstructive pulmonary disease with (acute) exacerbation; J44.0 Chronic obstructive pulmonary disease with (acute) lower respiratory infection; B37.0 Candidal stomatitis; Z87.891 Personal history of nicotine dependence; I10 Essential (primary) hypertension; Z79.82 Long term (current) use of aspirin; E87.6 Hypokalemia; K58.9 Irritable bowel syndrome, unspecified; I48.0 Paroxysmal atrial fibrillation
CPT/HCPCS: 36415; 36416; 71046; 80048; 80053; 83735; 84145; 84484; 85014; 85018; 85025; 85027; 93005; 93010; 93306; 94640; 94667; 94760; 94761; 96374; 97110; 97116; 97162; 97530; 99285-25; C9113; J0456; J0696; J1650; J2930; J3010; J7050; J7120; J7512

== ENCOUNTER → 2019-02-10 | Outpatient (CLI) | payer OTHER ==
[~2019-02-10] MED LIST changes: +ACET500 PO; +ALBU2.5V5 INH; +ASPI81CH PO; +ATOR40TA PO; +BUDE10.22 INH; +DILT180 PO; +PANT40 PO; +PRED1 PO
[2019-02-10 19:19] LABS: BASOPHILS ABSOLUTE AUTO 0.01 K/mm3 (0.00-0.23); BASOPHILS PERCENT AUTO 0 % (0-2); EOSINOPHILS PERCENT AUTO 0 % (0-6); Hematocrit 34.4 % (37.0-53.0); Hemoglobin 10.7 g/dL (13.5-17.5); IMMATURE GRAN ABSOLUTE AUTO 0.03 K/mm3 (0.00-0.10); IMMATURE GRAN PERCENT AUTO 0 % (0-1); LYMPHOCYTES ABSOLUTE AUTO 0.82 K/mm3 (0.84-5.20); LYMPHOCYTES PERCENT AUTO 10 % (21-46); MONOCYTES ABSOLUTE AUTO 0.63 K/mm3 (0.16-1.47); MONOCYTES PERCENT AUTO 8 % (4-13); Mean Corpuscular HGB 32.2 pg (26.0-34.0); Mean Corpuscular HGB Conc 31.1 g/dL (31.5-36.5); Mean Platelet Volume 9.9 fL (9.1-12.4); NEUTROPHILS ABSOLUTE AUTO 6.74 K/mm3 (1.96-9.15); NEUTROPHILS PERCENT AUTO 82 % (41-73); Platelet Count 214 K/mm3 (150-400); RDW Coefficient Variation 16.7 % (11.7-14.2); RDW Standard Deviation 62.2 fL (35.1-46.3); Red Blood Cell Count 3.32 M/mm3 (4.30-5.90); White Blood Cell Count 8.23 K/mm3 (4.00-11.30)
[2019-02-10 19:31] LABS: Alanine Aminotransfer (ALT/SGP 143 U/L (12-78); Albumin/Globulin Ratio 1.2 (0.8-1.8); Alk Phos 78 U/L (50-136); Anion Gap 8 mmol/L (6-16); Aspartate Aminotrans (AST/SGOT 54 U/L (12-37); Bilirubin, Total 1.2 mg/dL (0.1-1.0); Blood Urea Nitrogen 14 mg/dL (8-24); Bun/Creatinine Ratio 13.9 (12.0-20.0); CO2, Blood 31 mmol/L (21-32); Calcium, Blood 7.9 mg/dL (8.5-10.1); Chloride, Blood 108 mmol/L (98-108); Creatinine, Blood 1.01 mg/dL (0.60-1.20); Globulin, Blood 2.6 g/dL (2.2-4.0); Glomerular Filtration Rate >60 (60-); Glucose, Blood 105 mg/dL (70-99); Potassium, Blood 3.6 mmol/L (3.5-5.5); Sodium, Blood 147 mmol/L (136-145); Total Protein, Blood 5.6 g/dL (6.4-8.2)
[2019-02-10 19:36] LABS: Mean Corpuscular Volume 104 fL (80-100)
== END | disposition home or self-care (01) ==
LOC: LAB SHORT 15:10 → LAB 15:10
PROVIDERS: Hospitalist
DX: I10 Essential (primary) hypertension (principal); R60.0 Localized edema
CPT/HCPCS: 80053; 85025

== ENCOUNTER → 2019-04-27 | Outpatient (CLI) | payer OTHER ==
[2019-04-27 19:08] LABS: Anion Gap 5 mmol/L (6-16); Blood Urea Nitrogen 12 mg/dL (8-24); Bun/Creatinine Ratio 12.3 (12.0-20.0); CO2, Blood 28 mmol/L (21-32); Calcium, Blood 8.3 mg/dL (8.5-10.1); Chloride, Blood 112 mmol/L (98-108); Creatinine, Blood 0.98 mg/dL (0.60-1.20); Glomerular Filtration Rate >60 (60-); Glucose, Blood 93 mg/dL (70-99); Potassium, Blood 3.6 mmol/L (3.5-5.5); Sodium, Blood 145 mmol/L (136-145)
== END | disposition home or self-care (01) ==
LOC: LAB 14:45 → LAB SHORT 14:45
PROVIDERS: Hospitalist
DX: E87.6 Hypokalemia (principal)
CPT/HCPCS: 80048

== ENCOUNTER → 2020-01-20 | Outpatient (CLI) | payer OTHER ==
[2020-01-20 19:56] LABS: BASOPHILS ABSOLUTE AUTO 0.04 K/mm3 (0.00-0.23); BASOPHILS PERCENT AUTO 0 % (0-2); EOSINOPHILS ABSOLUTE AUTO 0.01 K/mm3 (0.00-0.68); EOSINOPHILS PERCENT AUTO 0 % (0-6); Hematocrit 45.3 % (37.0-53.0); Hemoglobin 14.3 g/dL (13.5-17.5); IMMATURE GRAN ABSOLUTE AUTO 0.06 K/mm3 (0.00-0.10); IMMATURE GRAN PERCENT AUTO 1 % (0-1); LYMPHOCYTES ABSOLUTE AUTO 1.42 K/mm3 (0.84-5.20); LYMPHOCYTES PERCENT AUTO 14 % (21-46); MONOCYTES ABSOLUTE AUTO 0.46 K/mm3 (0.16-1.47); MONOCYTES PERCENT AUTO 5 % (4-13); Mean Corpuscular HGB 30.1 pg (26.0-34.0); Mean Corpuscular HGB Conc 31.6 g/dL (31.5-36.5); Mean Corpuscular Volume 95 fL (80-100); Mean Platelet Volume 10.6 fL (9.1-12.4); NEUTROPHILS ABSOLUTE AUTO 8.01 K/mm3 (1.96-9.15); NEUTROPHILS PERCENT AUTO 80 % (41-73); Platelet Count 210 K/mm3 (150-400); RDW Coefficient Variation 13.9 % (11.7-14.2); Red Blood Cell Count 4.75 M/mm3 (4.30-5.90)
[2020-01-20 20:46] LABS: Alanine Aminotransfer (ALT/SGP 31 U/L (12-78); Albumin, Blood 3.2 g/dL (3.4-5.0); Alk Phos 78 U/L (50-136); Anion Gap 5 mmol/L (6-16); Aspartate Aminotrans (AST/SGOT 21 U/L (12-37); Bilirubin, Total 0.6 mg/dL (0.1-1.0); Blood Urea Nitrogen 14 mg/dL (8-24); Bun/Creatinine Ratio 13.1 (12.0-20.0); CO2, Blood 29 mmol/L (21-32); Calcium, Blood 8.6 mg/dL (8.5-10.1); Chloride, Blood 110 mmol/L (98-108); Creatinine, Blood 1.07 mg/dL (0.60-1.20); Globulin, Blood 3.3 g/dL (2.2-4.0); Glomerular Filtration Rate >60 (60-); Glucose, Blood 162 mg/dL (70-99); Potassium, Blood 3.7 mmol/L (3.5-5.5); Sodium, Blood 144 mmol/L (136-145); Thyroid Stimulating Hormone 0.608 uIU/mL (0.360-4.800); Total Protein, Blood 6.5 g/dL (6.4-8.2)
== END | disposition home or self-care (01) ==
LOC: LAB 17:31 → LAB SHORT 17:31
PROVIDERS: Hospitalist
DX: R53.83 Other fatigue (principal)
CPT/HCPCS: 80053; 84443; 85025

== ENCOUNTER → 2020-08-22 | Outpatient (CLI) | payer OTHER ==
[~2020-08-22] MED LIST changes: +ATOR20 PO; +AZIT500 PO; +Aspirin EC81 MG PO; -BUDE10.22 INH; +CARV3.125 PO; +CARVEDILOL3.125 MG PO; +CEFP200 PO; +ESCI10 PO; +LOSA50 PO; +MIRALAX17 GM PO; +Mucus Relief400 MG PO; +PRED5 PO; +SYMBICORT 80-10.2 GM INH; +VITAMIN D31000 UNI1 PO
[2020-08-22 20:11] LABS: BASOPHILS ABSOLUTE AUTO 0.06 K/mm3 (0.00-0.23); BASOPHILS PERCENT AUTO 1 % (0-2); EOSINOPHILS ABSOLUTE AUTO 0.11 K/mm3 (0.00-0.68); EOSINOPHILS PERCENT AUTO 1 % (0-6); Hemoglobin 14.6 g/dL (13.5-17.5); IMMATURE GRAN ABSOLUTE AUTO 0.04 K/mm3 (0.00-0.10); IMMATURE GRAN PERCENT AUTO 0 % (0-1); LYMPHOCYTES ABSOLUTE AUTO 1.47 K/mm3 (0.84-5.20); LYMPHOCYTES PERCENT AUTO 14 % (21-46); MONOCYTES ABSOLUTE AUTO 0.73 K/mm3 (0.16-1.47); MONOCYTES PERCENT AUTO 7 % (4-13); Mean Corpuscular HGB 29.8 pg (26.0-34.0); Mean Corpuscular HGB Conc 31.1 g/dL (31.5-36.5); Mean Corpuscular Volume 96 fL (80-100); Mean Platelet Volume 10.7 fL (9.1-12.4); NEUTROPHILS ABSOLUTE AUTO 7.93 K/mm3 (1.96-9.15); NEUTROPHILS PERCENT AUTO 77 % (41-73); Platelet Count 200 K/mm3 (150-400); RDW Coefficient Variation 13.4 % (11.7-14.2); RDW Standard Deviation 48.2 fL (35.1-46.3); White Blood Cell Count 10.34 K/mm3 (4.00-11.30)
[2020-08-22 20:25] LABS: Prostate Specific Antigen 0.321 ng/mL (0.000-4.000)
[2020-08-22 20:33] LABS: Alanine Aminotransfer (ALT/SGP 21 U/L (12-78); Albumin, Blood 3.2 g/dL (3.4-5.0); Albumin/Globulin Ratio 1.2 (0.8-1.8); Alk Phos 73 U/L (50-136); Anion Gap 3 mmol/L (6-16); Aspartate Aminotrans (AST/SGOT 17 U/L (12-37); Bilirubin, Total 0.7 mg/dL (0.1-1.0); Blood Urea Nitrogen 12 mg/dL (8-24); Bun/Creatinine Ratio 10.3 (12.0-20.0); CO2, Blood 37 mmol/L (21-32); Calcium, Blood 8.7 mg/dL (8.5-10.1); Chloride, Blood 106 mmol/L (98-108); Creatinine, Blood 1.16 mg/dL (0.60-1.20); Globulin, Blood 2.6 g/dL (2.2-4.0); Glomerular Filtration Rate >60 (60-); Glucose, Blood 113 mg/dL (70-99); Potassium, Blood 3.9 mmol/L (3.5-5.5); Sodium, Blood 146 mmol/L (136-145); Total Protein, Blood 5.8 g/dL (6.4-8.2)
== END ==
LOC: LAB 18:02 → LAB SHORT 18:02
PROVIDERS: Hospitalist
DX: Z12.5 Encounter for screening for malignant neoplasm of prostate (principal); I10 Essential (primary) hypertension; R53.83 Other fatigue
CPT/HCPCS: 80053; 84443; 85025; G0103

== ENCOUNTER 2020-10-02 11:16 | Inpatient (IN) | payer OTHER, MEDICARE ==
[~2020-10-02] VITALS: Ht 165.1 cm; Wt 55.6 kg
[~2020-10-02 11:16] MED LIST changes: -ASPI81CH PO; -ATOR20 PO; -AZIT500 PO; -CARV3.125 PO; -CARVEDILOL3.125 MG PO; -CEFP200 PO; -ESCI10 PO; -LOSA50 PO; -MIRALAX17 GM PO; -Mucus Relief400 MG PO; -PRED5 PO; -VITAMIN D31000 UNI1 PO
[2020-10-02 11:35] LABS: Chloride (POC) 102 mmol/L (98-108); Creatinine (POC) 1.3 mg/dL (0.8-1.3); Glucose (ISTAT POC) 142 mg/dL (70-99); Potassium (POC) 4.1 mmol/L (3.5-5.5); Sodium (POC) 140 mmol/L (135-148); Total CO2 (POC) 28 mmol/L (21-32)
[2020-10-02] MEDS ORDERED: PRED5 PO (11:38)
[2020-10-02 11:39] LABS: BASOPHILS ABSOLUTE AUTO 0.09 K/mm3 (0.00-0.23); BASOPHILS PERCENT AUTO 1 % (0-2); EOSINOPHILS ABSOLUTE AUTO 0.49 K/mm3 (0.00-0.68); EOSINOPHILS PERCENT AUTO 5 % (0-6); Hematocrit 44.3 % (37.0-53.0); Hemoglobin 14.4 g/dL (13.5-17.5); IMMATURE GRAN ABSOLUTE AUTO 0.04 K/mm3 (0.00-0.10); IMMATURE GRAN PERCENT AUTO 0 % (0-1); LYMPHOCYTES ABSOLUTE AUTO 2.24 K/mm3 (0.84-5.20); LYMPHOCYTES PERCENT AUTO 21 % (21-46); MONOCYTES ABSOLUTE AUTO 1.27 K/mm3 (0.16-1.47); MONOCYTES PERCENT AUTO 12 % (4-13); Mean Corpuscular HGB 30.1 pg (26.0-34.0); Mean Corpuscular HGB Conc 32.5 g/dL (31.5-36.5); Mean Corpuscular Volume 93 fL (80-100); Mean Platelet Volume 9.5 fL (9.1-12.4); NEUTROPHILS ABSOLUTE AUTO 6.66 K/mm3 (1.96-9.15); NEUTROPHILS PERCENT AUTO 62 % (41-73); Platelet Count 364 K/mm3 (150-400); RDW Coefficient Variation 12.8 % (11.7-14.2); RDW Standard Deviation 43.9 fL (35.1-46.3); Red Blood Cell Count 4.79 M/mm3 (4.30-5.90); White Blood Cell Count 10.79 K/mm3 (4.00-11.30)
[2020-10-02] MEDS ORDERED: CARVEDILOL3.125 MG PO (11:39)
[2020-10-02] MEDS ORDERED: ESCI10 PO (11:39)
[2020-10-02 11:40] LABS: Base Excess Venous 5.9 mmol/L; Bicarbonate Venous 28.6 mmol/L (24.0-30.0); PCO2 Venous 47.4 mmHg (38-42); pH Blood Venous 7.42 (7.34-7.37)
[2020-10-02 12:12] LABS: Alanine Aminotransfer (ALT/SGP 28 U/L (12-78); Albumin, Blood 2.7 g/dL (3.4-5.0); Albumin/Globulin Ratio 0.7 (0.8-1.8); Alk Phos 85 U/L (50-136); Anion Gap 5 mmol/L (6-16); Aspartate Aminotrans (AST/SGOT 20 U/L (12-37); Bilirubin, Total 0.7 mg/dL (0.1-1.0); Blood Urea Nitrogen 15 mg/dL (8-24); Bun/Creatinine Ratio 12.4 (12.0-20.0); CO2, Blood 30 mmol/L (21-32); Calcium, Blood 8.9 mg/dL (8.5-10.1); Chloride, Blood 107 mmol/L (98-108); Creatinine, Blood 1.21 mg/dL (0.60-1.20); Glomerular Filtration Rate >60 (60-); Glucose, Blood 137 mg/dL (70-99); Potassium, Blood 4.1 mmol/L (3.5-5.5); Sodium, Blood 142 mmol/L (136-145); Total Protein, Blood 6.7 g/dL (6.4-8.2); Troponin I 0.087 ng/mL (0.000-0.040)
[2020-10-02 12:17] LABS: Influenza A, PCR NEGATIVE (NEGATIVE); Influenza B, PCR NEGATIVE (NEGATIVE); Resp Syncytial Virus, PCR NEGATIVE (NEGATIVE); SARS-Cov-2 (COVID-19) PCR, MMC NEGATIVE (NEGATIVE)
[2020-10-02] MEDS ORDERED: CARV3.125 PO (16:59)
--- NOTE | 2020-10-02 18:02 | NUR ---
ADMISSION/SHIFT SUMMARY PT ADMITTED THIS SHIFT. SATING AT 96% ON 2L O2 VIA NC. PT ORIENTED TO ROOM. PHONE & CALL LIGHT IN REACH. WATER PROVIDED. LR STARTED AT 100ML/HR. PT DENIES PAIN. URINAL AT BEDSIDE. HEALTH HISTORY & MEDS REVIEWED. PT STATES HE UNDERSTANDS & IS RESTING IN BED. VS REVIEWED & STABLE.
[2020-10-03 02:12] LABS: BASOPHILS ABSOLUTE AUTO 0.02 K/mm3 (0.00-0.23); BASOPHILS PERCENT AUTO 0 % (0-2); EOSINOPHILS PERCENT AUTO 0 % (0-6); Hemoglobin 14.2 g/dL (13.5-17.5); IMMATURE GRAN ABSOLUTE AUTO 0.04 K/mm3 (0.00-0.10); IMMATURE GRAN PERCENT AUTO 0 % (0-1); LYMPHOCYTES PERCENT AUTO 8 % (21-46); MONOCYTES ABSOLUTE AUTO 0.08 K/mm3 (0.16-1.47); MONOCYTES PERCENT AUTO 1 % (4-13); Mean Corpuscular HGB 29.9 pg (26.0-34.0); Mean Corpuscular Volume 91 fL (80-100); Mean Platelet Volume 9.8 fL (9.1-12.4); NEUTROPHILS ABSOLUTE AUTO 8.49 K/mm3 (1.96-9.15); NEUTROPHILS PERCENT AUTO 91 % (41-73); Platelet Count 332 K/mm3 (150-400); RDW Coefficient Variation 12.4 % (11.7-14.2); RDW Standard Deviation 41.6 fL (35.1-46.3); Red Blood Cell Count 4.75 M/mm3 (4.30-5.90); White Blood Cell Count 9.33 K/mm3 (4.00-11.30)
[2020-10-03 02:42] LABS: Anion Gap 4 mmol/L (6-16); Blood Urea Nitrogen 19 mg/dL (8-24); Bun/Creatinine Ratio 18.8 (12.0-20.0); CO2, Blood 31 mmol/L (21-32); Chloride, Blood 108 mmol/L (98-108); Creatinine, Blood 1.01 mg/dL (0.60-1.20); Glomerular Filtration Rate >60 (60-); Glucose, Blood 162 mg/dL (70-99); Potassium, Blood 4.4 mmol/L (3.5-5.5); Sodium, Blood 143 mmol/L (136-145)
--- NOTE | 2020-10-03 04:55 | NUR ---
[employer] MAINFRAME DEVELOPER SUMMARY PT AAOX4 AND VERY PLEASANT. REMAINS ON 2L O2 VIA NC. PT STATES BREATHING IS IMPROVED COMPARED TO WHEN HE FIRST CAME IN. FINE EXPIRATORY WHEEZES NOTED DURING INITIAL ASSESSMENT. PT TROPONINS TRENDED UP WITH 1800 DRAW AT 0.888 AND 0200 DRAW AT 1.02. IRMA RAE WIRE SPOOLER FOR INITIAL TROPONIN AND RECIEVED ORDER FOR EKG AND TO PLACE PT ON TELE, NO ACUTE CHANGES NOTED ON EKG AND PT DENIED ANY CP. DR GROVER NOTIFIED OF 0200 DRAW AND STATED TO CONTINUE TO MONITOR PT AT THAT TIME. REPEAT TROP DRAW SET FOR 1000. PT HAS SLEPT WELL MOST OF THE SHIFT. VSS, WILL CONTINUE TO MONITOR.
--- NOTE | 2020-10-03 18:37 | NUR ---
SHIFT SUMMARY PT TROPONINS STARTED TO TREND BACK DOWN TODAY. TELE REMAINS IN PLACE. SINUS WITH PVC/PAC PER CARBON BRUSH MAKER. PT TITRATED DOWN ON O2 AND IS NOW SATING AT 93% ON RA. PRN BREATHING TREATMENTS. PT HAVING DIFFICULTY SWALLOWING PILLS WHOLE, EVEN IN APPLESAUCE. MEDS TO BE CRUSHED FOR NOW ON. NO OTHER ACUTE CHANGES IN ASSESSMENT AT THIS TIME. VS REVIEWED. PT RESTING IN BED. CALL LIGHT IN REACH.
--- NOTE | 2020-10-04 05:14 | NUR ---
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 HAS BEEN ABLE TO REMAIN ON ROOM AIR THROUGH THE NIGHT. PT REPORTS BREATHING GREATLY IMPROVED AND THAT HE IS READY TO GO HOME. PT HAS DIFFICULTY TAKING PILLS WHOLE WITH WATER OR APPLESAUCE SO MEDS ARE CRUSHED AND PT DOES WELL WITH THAT. GIVEN TYLENOL X1 FOR CHRONIC BACK PAIN. VSS, WILL CONTINUE TO MONITOR.
[2020-10-04 09:21] LABS: Albumin, Blood 2.6 g/dL (3.4-5.0); Anion Gap 6 mmol/L (6-16); Blood Urea Nitrogen 23 mg/dL (8-24); Bun/Creatinine Ratio 21.7 (12.0-20.0); CO2, Blood 31 mmol/L (21-32); Calcium, Blood 9.2 mg/dL (8.5-10.1); Chloride, Blood 107 mmol/L (98-108); Creatinine, Blood 1.06 mg/dL (0.60-1.20); Glomerular Filtration Rate >60 (60-); Glucose, Blood 158 mg/dL (70-99); Phosphorus, Blood 3.2 mg/dL (2.5-4.9); Potassium, Blood 4.2 mmol/L (3.5-5.5); Sodium, Blood 144 mmol/L (136-145)
--- NOTE | 2020-10-04 18:48 | NUR ---
SHIFT SUMMARY PT UP TO CHAIR FOR BREAKFAST. ON ROOM AIR THROUGH THE DAY. SOB WITH ACTIVITY. DR. JOAQUIN IN TO SEE PT. DENIES PAIN OR NAUSEA TODAY. WILL REPORT CONDITION TO ONCOMING SHIFT.
--- NOTE | 2020-10-04 18:56 | NUR ---
Spiritual care ote: Mr. Marrero was talkative and appeared to enjoy conversation/companionship. He lives alone and admits he sometimes has trouble breathing when he moves around. He is very independant and reluctant to accept help. He takes pride in his self-reliance. He told me several long stories from his life. He is non-moravian and admits his respiratory issues bring concern. I assured him of excellent care and attention and offered gentle classification counselor about accepting help. We had a good rapport and I will remain available.
[2020-10-05 04:47] LABS: Anion Gap 4 mmol/L (6-16); Blood Urea Nitrogen 27 mg/dL (8-24); Bun/Creatinine Ratio 24.3 (12.0-20.0); CHOL/HDL RATIO 3.8; CO2, Blood 31 mmol/L (21-32); Chloride, Blood 109 mmol/L (98-108); Cholesterol 172 mg/dL (50-200); Creatinine, Blood 1.11 mg/dL (0.60-1.20); Glomerular Filtration Rate >60 (60-); Glucose, Blood 140 mg/dL (70-99); HDL Cholesterol 45 mg/dL (>39); LDL/HDL RATIO 2.2; Low Density Lipoprotein Chol 97 mg/dL (0-110); Potassium, Blood 4.2 mmol/L (3.5-5.5); Sodium, Blood 144 mmol/L (136-145); Triglycerides 149 mg/dL (30-160); Very Low Density Lipoprot Chol 29 mg/dL (6-32)
--- NOTE | 2020-10-05 05:26 | NUR ---
SHIFT SUMMARY: BP ELEVATED THIS AM, 157/103. NSR W/PAC'S AND PVC'S PER TELE INTERPRETER DEAF. HR 82-96. DENIES CHEST PAIN. 02 93% ON RA. PT PROACTIVE AND INDEPENDENTLY USING INCENTIVE SPIROMETER AND FLUTTER VALVE. PT PANICS AND CALLS OUT FOR HELP WHEN SOB. 02 REMAINS WNL. LSCTA W/ DIM BASES. RESPS EVEN. REPORTS PRODUCTIVE COUGH W/ MOD AMT OF WHITE SPUTUM. INDEPENDENTLY T/F TO BSC. CONTINENT. ABLE TO COMMUNICATE NEEDS. A/OX3. NO ACUTE OVERNIGHT EVENTS.
--- NOTE | 2020-10-05 10:30 | NUR ---
[employer] CALLED APPROX 0850 TO NOTIFY OF PTS HR UP TO 160-170'S. PT ASYMPTOMATIC. NOTIFIED MD OF HEART SUSTAINING. OBTAINED A.M. MEDS AND PREPARED THEM FOR PT TO HELP WITH TACHYCARDIA. PLACED IN CHOCOLATE PUDDING WHICH PT REPORTED HE COULDN'T EAT. NEW MEDS IN APPLE SAUCE AND STARTED TAKING. BY THEN MD WAS IN ROOM AND ATTEMPTING CAROTID MASSAGE WITH NO RESULTS. THEN PT ASSISTED TO COMMODE AND HE STARTED ATTEMPTING TO DO THE VAGAL MANEUVER TO DECREASE RATE. MEDS TAKEN AND SEVERAL MINUTES INTO DOING MANEUVER ON AND OFF AND AFTER MD ORDERED IV LOPRESSOR HEART RATE DROPPED TO 110'S. MD NOTIFIED AGAIN AND PT REMAINED ASYMPTOMATIC THE ENTIRE TIME. STATING HIS HEART RATE GOES HIGHER THAN THAT AT HOME. EPISODE STOPPED APPROX 0935. NO FURTHER EPISODES SINCE INCLUDING WITH P.T.
--- NOTE | 2020-10-05 17:10 | NUR ---
SHIFT SUMMARY PT WITH NO FURTHER EPISODES OF TACHYCARDIA. UP IN ROOM AND ABOUT BED INDEPENDENTLY. AMBULATED IN HALLWAY WITH OT THIS AFTERNOON AND TOLERATED WITH SLIGHT DIP IN SATS BUT RECOVERED QUICKLY WHILE ON ROOM AIR. POSSIBLE DISCHARGE TOMORROW.
[2020-10-06 05:26] LABS: BASOPHILS ABSOLUTE AUTO 0.02 K/mm3 (0.00-0.23); BASOPHILS PERCENT AUTO 0 % (0-2); EOSINOPHILS PERCENT AUTO 0 % (0-6); Hemoglobin 13.8 g/dL (13.5-17.5); IMMATURE GRAN ABSOLUTE AUTO 0.08 K/mm3 (0.00-0.10); IMMATURE GRAN PERCENT AUTO 1 % (0-1); LYMPHOCYTES ABSOLUTE AUTO 1.13 K/mm3 (0.84-5.20); LYMPHOCYTES PERCENT AUTO 8 % (21-46); MONOCYTES ABSOLUTE AUTO 0.99 K/mm3 (0.16-1.47); MONOCYTES PERCENT AUTO 7 % (4-13); Mean Corpuscular HGB 30.1 pg (26.0-34.0); Mean Corpuscular HGB Conc 32.9 g/dL (31.5-36.5); Mean Corpuscular Volume 92 fL (80-100); Mean Platelet Volume 10.3 fL (9.1-12.4); NEUTROPHILS ABSOLUTE AUTO 11.64 K/mm3 (1.96-9.15); NEUTROPHILS PERCENT AUTO 84 % (41-73); Platelet Count 341 K/mm3 (150-400); RDW Coefficient Variation 12.6 % (11.7-14.2); RDW Standard Deviation 42.3 fL (35.1-46.3); Red Blood Cell Count 4.59 M/mm3 (4.30-5.90); White Blood Cell Count 13.86 K/mm3 (4.00-11.30)
[2020-10-06 05:49] LABS: Anion Gap 2 mmol/L (6-16); Blood Urea Nitrogen 27 mg/dL (8-24); Bun/Creatinine Ratio 22.3 (12.0-20.0); CO2, Blood 32 mmol/L (21-32); Calcium, Blood 9.3 mg/dL (8.5-10.1); Chloride, Blood 110 mmol/L (98-108); Creatinine, Blood 1.21 mg/dL (0.60-1.20); Glomerular Filtration Rate >60 (60-); Glucose, Blood 88 mg/dL (70-99); Potassium, Blood 3.8 mmol/L (3.5-5.5); Sodium, Blood 144 mmol/L (136-145)
--- NOTE | 2020-10-06 06:02 | NUR ---
SHIFT SUMMARY: VSS. AFEB. AAOX3. 02 92-95% ON RA. INFREQUENT COUGH, PRODUCING SMALL AMTS OF WHITE SPUTUM PER PT. INDEPENDENTLY USES IS AND FLUTTER VALVE. REPORTS EXERTIONAL DYSPNEA. LSCTA W/DIM BASES. HR 77, NSR W/ 1ST DEGREE HB PER TELE MONITOR. NO EPISODES OF TACHYCARDIA TONIGHT. DENIES CHEST PAIN. NO ACUTE OVERNIGHT EVENTS. WCTM.
--- NOTE | 2020-10-06 09:00 | NUR ---
PT PLEASANT COOOP A/O X3. DENIES PAIN ADMITS SOB WITH EXERTION. STATES CAN WALK TO BATHROOM AND KITCHEN AT HOME NEEDED. OKAY TO D/C IF CAN TODAY. H/R REG, NO MURMER NOTED. DISTANT SOUNDS. PER TELE NSR AT 70. LUNGS CLEAR, RESP EASY, UNLABORED. ON R.A. BT X4 LAST BM NOTKNOWN BY PT. VOIDS IND TO BSC. BED IN LOW POSITION, CALL LITE IN REACH, CALLS APPROP
[2020-10-06] MEDS ORDERED: ASPI81CH PO (13:05)
[2020-10-06] MEDS ORDERED: LOSA50 PO (13:06)
[2020-10-06] MEDS ORDERED: Mucus Relief400 MG PO (13:06)
[2020-10-06] MEDS ORDERED: ATOR20 PO (13:06)
[2020-10-06] MEDS ORDERED: MIRALAX17 GM PO (13:07)
[2020-10-06] MEDS ORDERED: CEFP200 PO (13:08)
[2020-10-06] MEDS ORDERED: VITAMIN D31000 UNI1 PO (13:08)
[2020-10-06] MEDS ORDERED: AZIT500 PO (13:08)
--- NOTE | 2020-10-06 13:46 | NUR ---
PT DISCHARGE REVIEWED WITH PT . HE VERBALIZED UNDERSTANDING. IV PULLED INTACT. TELE REMOVED AND RETURNED. PT DRESSED SELF. PT WHEELED TO DOOR BY MYSELF. AT 1335.
== END 2020-10-06 14:00 | disposition home or self-care (01) | DRG 193 ==
LOC: ER 11:16 → MEDS 13:18 → ENPENDDIS 10-06 10:59 → MEDS 10-06 14:00
PROVIDERS: Emergency Medicine; Internal Medicine; Internal Medicine Cardiovascular Disease; Nurse Practitioner Acute Care; ADMIT Internal Medicine
DX: J18.9 Pneumonia, unspecified organism (principal); I21.A1 Myocardial infarction type 2; J96.01 Acute respiratory failure with hypoxia; J44.1 Chronic obstructive pulmonary disease with (acute) exacerbation; R64 Cachexia; K50.90 Crohn's disease, unspecified, without complications; I10 Essential (primary) hypertension; I25.10 Atherosclerotic heart disease of native coronary artery without angina pectoris; Z20.822 Contact with and (suspected) exposure to COVID-19; Z68.21 Body mass index [BMI] 21.0-21.9, adult; I48.0 Paroxysmal atrial fibrillation; Z87.891 Personal history of nicotine dependence; I25.2 Old myocardial infarction
CPT/HCPCS: 0241U; 36415; 71045; 80047; 80048; 80053; 80061; 80069; 82803; 83036; 83880; 84145; 84484; 85014; 85025; 93005; 93010; 94640; 94667; 94668; 94760; 96374; 96375; 97110; 97116; 97162; 97165; 97530; 97535; 99285-25; A9270; C8929; J0696; J2920; J2930; J7120; Q9957

== ENCOUNTER 2021-06-21 10:34 | Emergency (ER) | payer OTHER ==
[~2021-06-21] VITALS: Ht 167.6 cm; Wt 59.0 kg
[~2021-06-21 10:34] MED LIST changes: +ASPI81CH PO; +ATOR20 PO; +AZIT500 PO; +CARV3.125 PO; +CARVEDILOL3.125 MG PO; +CEFP200 PO; +ESCI10 PO; +LOSA50 PO; +MIRALAX17 GM PO; +Mucus Relief400 MG PO; +PRED5 PO; +VITAMIN D31000 UNI1 PO
[2021-06-21] MEDS ORDERED: CENTRUM SILVER1 EAC2 PO (10:53)
[2021-06-21 11:40] LABS: BASOPHILS ABSOLUTE AUTO 0.03 K/mm3 (0.00-0.23); BASOPHILS PERCENT AUTO 0 % (0-2); EOSINOPHILS ABSOLUTE AUTO 0.05 K/mm3 (0.00-0.68); EOSINOPHILS PERCENT AUTO 1 % (0-6); Hematocrit 46.5 % (37.0-53.0); Hemoglobin 15.1 g/dL (13.5-17.5); IMMATURE GRAN ABSOLUTE AUTO 0.05 K/mm3 (0.00-0.10); IMMATURE GRAN PERCENT AUTO 1 % (0-1); LYMPHOCYTES ABSOLUTE AUTO 1.86 K/mm3 (0.84-5.20); LYMPHOCYTES PERCENT AUTO 19 % (21-46); MONOCYTES ABSOLUTE AUTO 0.88 K/mm3 (0.16-1.47); MONOCYTES PERCENT AUTO 9 % (4-13); Mean Corpuscular HGB 30.6 pg (26.0-34.0); Mean Corpuscular HGB Conc 32.5 g/dL (31.5-36.5); Mean Corpuscular Volume 94 fL (80-100); NEUTROPHILS ABSOLUTE AUTO 7.13 K/mm3 (1.96-9.15); NEUTROPHILS PERCENT AUTO 71 % (41-73); Platelet Count 212 K/mm3 (150-400); RDW Coefficient Variation 13.4 % (11.7-14.2); RDW Standard Deviation 46.4 fL (35.1-46.3); Red Blood Cell Count 4.93 M/mm3 (4.30-5.90)
[2021-06-21 11:47] LABS: Anion Gap 2 mmol/L (6-16); Blood Urea Nitrogen 9 mg/dL (8-24); Bun/Creatinine Ratio 8.7 (12.0-20.0); CO2, Blood 37 mmol/L (21-32); Chloride, Blood 108 mmol/L (98-108); Creatinine, Blood 1.04 mg/dL (0.60-1.20); Glomerular Filtration Rate >60 (60-); Glucose, Blood 92 mg/dL (70-99); Potassium, Blood 3.9 mmol/L (3.5-5.5); Sodium, Blood 147 mmol/L (136-145); Troponin I <0.015 ng/mL (0.000-0.040)
[2021-06-21] MEDS ORDERED: MECL25 PO (14:44)
== END 2021-06-21 15:20 | disposition home or self-care (01) ==
LOC: ER 10:34
PROVIDERS: Emergency Medicine
DX: I16.0 Hypertensive urgency (principal); I10 Essential (primary) hypertension; J44.9 Chronic obstructive pulmonary disease, unspecified; I48.91 Unspecified atrial fibrillation; Z91.018 Allergy to other foods; Z88.8 Allergy status to other drugs, medicaments and biological substances; Z91.013 Allergy to seafood; Z79.899 Other long term (current) drug therapy
CPT/HCPCS: 36415; 71045; 80048; 84484; 85025; 93005; 93010; 96374; 99284-25; A9270; J0360

== ENCOUNTER → 2021-07-06 | Outpatient (CLI) | payer OTHER ==
[~2021-07-06] MED LIST changes: +CENTRUM SILVER1 EAC2 PO; +MECL25 PO
[2021-07-09 17:08] LABS: METANEPHRINE, UR 68 ug/L (Undefined)
[2021-07-10 10:12] LABS: DOPAMINE, URINE 103 ug/L (Undefined)
== END | disposition home or self-care (01) ==
LOC: LAB SHORT 09:00
PROVIDERS: Hospitalist
DX: I16.0 Hypertensive urgency (principal)
CPT/HCPCS: 82384; 83835

== ENCOUNTER → 2021-11-12 | Outpatient (CLI) | payer OTHER ==
[~2021-11-12] MED LIST changes: +Acetaminophen500 MG PO; +GABA300 PO; +IBUP600 PO; +LOSA25 PO
[2021-11-12 19:15] LABS: BASOPHILS ABSOLUTE AUTO 0.07 K/mm3 (0.00-0.23); BASOPHILS PERCENT AUTO 1 % (0-2); EOSINOPHILS ABSOLUTE AUTO 0.16 K/mm3 (0.00-0.68); EOSINOPHILS PERCENT AUTO 1 % (0-6); Hematocrit 44.3 % (37.0-53.0); IMMATURE GRAN ABSOLUTE AUTO 0.03 K/mm3 (0.00-0.10); IMMATURE GRAN PERCENT AUTO 0 % (0-1); LYMPHOCYTES ABSOLUTE AUTO 1.18 K/mm3 (0.84-5.20); LYMPHOCYTES PERCENT AUTO 11 % (21-46); MONOCYTES ABSOLUTE AUTO 0.86 K/mm3 (0.16-1.47); MONOCYTES PERCENT AUTO 8 % (4-13); Mean Corpuscular HGB 29.9 pg (26.0-34.0); Mean Corpuscular HGB Conc 31.6 g/dL (31.5-36.5); Mean Corpuscular Volume 95 fL (80-100); Mean Platelet Volume 10.2 fL (9.1-12.4); NEUTROPHILS ABSOLUTE AUTO 8.75 K/mm3 (1.96-9.15); NEUTROPHILS PERCENT AUTO 79 % (41-73); Platelet Count 257 K/mm3 (150-400); RDW Coefficient Variation 13.4 % (11.7-14.2); RDW Standard Deviation 47.1 fL (35.1-46.3); Red Blood Cell Count 4.68 M/mm3 (4.30-5.90); White Blood Cell Count 11.05 K/mm3 (4.00-11.30)
[2021-11-12 20:13] LABS: Alanine Aminotransfer (ALT/SGP 27 U/L (12-78); Albumin, Blood 3.1 g/dL (3.4-5.0); Albumin/Globulin Ratio 1.1 (0.8-1.8); Alk Phos 77 U/L (50-136); Anion Gap Unable to Calculate mmol/L (6-16); Aspartate Aminotrans (AST/SGOT 24 U/L (12-37); Bilirubin, Total 0.8 mg/dL (0.1-1.0); Blood Urea Nitrogen 16 mg/dL (8-24); Bun/Creatinine Ratio 14.2 (12.0-20.0); CO2, Blood 38 mmol/L (21-32); Calcium, Blood 8.8 mg/dL (8.5-10.1); Chloride, Blood 109 mmol/L (98-108); Creatinine, Blood 1.13 mg/dL (0.60-1.20); Globulin, Blood 2.9 g/dL (2.2-4.0); Glomerular Filtration Rate >60 (60-); Glucose, Blood 133 mg/dL (70-99); Potassium, Blood 3.7 mmol/L (3.5-5.5); Sodium, Blood 146 mmol/L (136-145)
== END ==
LOC: LAB 12:00 → LAB SHORT 12:00
PROVIDERS: Hospitalist
DX: I10 Essential (primary) hypertension (principal)
CPT/HCPCS: 80053; 85025

== ENCOUNTER → 2022-05-19 | Outpatient (CLI) | payer OTHER ==
[~2022-05-19] MED LIST changes: +AMOX-CLAV 875-1 EAC2 PO; +CEFU500T30 PO; +IPRAT-ALBUT 0.5-3 ML INH; +NEURONTIN300 MG PO; +SULFAMETHOXAZO1 EAC1 PO; +SYMBICORT 16010.2 GM INH; +VISBIOME 112.51 EACH PO
[2022-05-19 14:55] LABS: BASOPHILS ABSOLUTE AUTO 0.03 K/mm3 (0.00-0.23); BASOPHILS PERCENT AUTO 0 % (0-2); EOSINOPHILS ABSOLUTE AUTO 0.01 K/mm3 (0.00-0.68); EOSINOPHILS PERCENT AUTO 0 % (0-6); Hematocrit 39.1 % (37.0-53.0); Hemoglobin 12.7 g/dL (13.5-17.5); IMMATURE GRAN ABSOLUTE AUTO 0.06 K/mm3 (0.00-0.10); IMMATURE GRAN PERCENT AUTO 0 % (0-1); LYMPHOCYTES ABSOLUTE AUTO 1.56 K/mm3 (0.84-5.20); LYMPHOCYTES PERCENT AUTO 11 % (21-46); MONOCYTES ABSOLUTE AUTO 0.85 K/mm3 (0.16-1.47); MONOCYTES PERCENT AUTO 6 % (4-13); Mean Corpuscular HGB 30.3 pg (26.0-34.0); Mean Corpuscular HGB Conc 32.5 g/dL (31.5-36.5); Mean Corpuscular Volume 93 fL (80-100); Mean Platelet Volume 9.9 fL (9.1-12.4); NEUTROPHILS ABSOLUTE AUTO 11.94 K/mm3 (1.96-9.15); NEUTROPHILS PERCENT AUTO 83 % (41-73); Platelet Count 187 K/mm3 (150-400); RDW Coefficient Variation 13.9 % (11.7-14.2); RDW Standard Deviation 47.1 fL (35.1-46.3); Red Blood Cell Count 4.19 M/mm3 (4.30-5.90); White Blood Cell Count 14.45 K/mm3 (4.00-11.30)
[2022-05-19 15:06] LABS: Albumin, Blood 2.5 g/dL (3.4-5.0); Albumin/Globulin Ratio 0.8 (0.8-1.8); Bilirubin, Total 0.9 mg/dL (0.1-1.0); Bun/Creatinine Ratio 14.4 (12.0-20.0); Calcium, Blood 8.3 mg/dL (8.5-10.1); Creatinine, Blood 1.32 mg/dL (0.60-1.20); Globulin, Blood 3.2 g/dL (2.2-4.0); Potassium, Blood 4.1 mmol/L (3.5-5.5); Total Protein, Blood 5.7 g/dL (6.4-8.2)
== END | disposition home or self-care (01) ==
LOC: LAB 14:51 → LAB SHORT 14:51
PROVIDERS: General Practice
DX: M25.431 Effusion, right wrist (principal)
CPT/HCPCS: 80053; 85025

== ENCOUNTER 2022-05-22 18:27 | Inpatient (IN) | payer OTHER ==
[~2022-05-22] VITALS: Ht 167.6 cm; Wt 56.0 kg
[~2022-05-22 18:27] MED LIST changes: -AMOX-CLAV 875-1 EAC2 PO; -CEFU500T30 PO; -IPRAT-ALBUT 0.5-3 ML INH; -NEURONTIN300 MG PO; -SULFAMETHOXAZO1 EAC1 PO; -SYMBICORT 16010.2 GM INH; -VISBIOME 112.51 EACH PO
[2022-05-22 21:21] LABS: BASOPHILS ABSOLUTE AUTO 0.03 K/mm3 (0.00-0.23); BASOPHILS PERCENT AUTO 0 % (0-2); EOSINOPHILS ABSOLUTE AUTO 0.03 K/mm3 (0.00-0.68); EOSINOPHILS PERCENT AUTO 0 % (0-6); Hematocrit 37.1 % (37.0-53.0); Hemoglobin 12.2 g/dL (13.5-17.5); IMMATURE GRAN ABSOLUTE AUTO 0.04 K/mm3 (0.00-0.10); IMMATURE GRAN PERCENT AUTO 0 % (0-1); LYMPHOCYTES ABSOLUTE AUTO 1.28 K/mm3 (0.84-5.20); LYMPHOCYTES PERCENT AUTO 11 % (21-46); MONOCYTES ABSOLUTE AUTO 0.86 K/mm3 (0.16-1.47); MONOCYTES PERCENT AUTO 7 % (4-13); Mean Corpuscular HGB 30.4 pg (26.0-34.0); Mean Corpuscular HGB Conc 32.9 g/dL (31.5-36.5); Mean Corpuscular Volume 93 fL (80-100); Mean Platelet Volume 10.5 fL (9.1-12.4); NEUTROPHILS ABSOLUTE AUTO 9.66 K/mm3 (1.96-9.15); NEUTROPHILS PERCENT AUTO 81 % (41-73); Platelet Count 217 K/mm3 (150-400); RDW Coefficient Variation 13.6 % (11.7-14.2); RDW Standard Deviation 46.4 fL (35.1-46.3); Red Blood Cell Count 4.01 M/mm3 (4.30-5.90)
[2022-05-22 21:38] LABS: Albumin, Blood 2.3 g/dL (3.4-5.0); Albumin/Globulin Ratio 0.7 (0.8-1.8); Bilirubin, Total 0.5 mg/dL (0.1-1.0); Bun/Creatinine Ratio 10.2 (12.0-20.0); Calcium, Blood 8.8 mg/dL (8.5-10.1); Creatinine, Blood 1.27 mg/dL (0.60-1.20); Globulin, Blood 3.2 g/dL (2.2-4.0); Potassium, Blood 3.9 mmol/L (3.5-5.5); Total Protein, Blood 5.5 g/dL (6.4-8.2)
--- NOTE | 2022-05-23 00:45 | NUR ---
ADMIT NOTE; PT TO ROOM FROM ED, PT ARRIVED TO ROOM VIA FATOU AT 2302 ON 05/22/22. A SLIDE SHEET WAS USE TO TRANFER PT TO HOPSITAL BED GIVEN THE PT IS UNSTABLE ON HIS FEET. PT HAS A IV IN HIS L AC, NO FLUIDS AT THIS TIME. PT ARRIVES ON RA, NO SOB. PT HAS BRUISING ON HIS L HAND AND ARM, PICTURE IN CHART. PICTURE OF PT'S INFLAMMED AND SWOLLEN R HAND IN CHART WELL. PT ARRIVED WITH EDEMA TO THE R UPPER ARM WELL BLE. PT APPEARS OVERALL DECONDITIONED AND HAS GENERALIZED WEAKNESS. WILL CONTINUE TO MONITOR.
--- NOTE | 2022-05-23 04:56 | NUR ---
SHIFT SUMMARY; PT ARRIVED FROM ED LAST NIGHT, ADMITTED WITH HYPOXIA R/T COPD AND CELLULITUS R/T A INFECTED CAT SCRATCH ON R HAND. PT COMPLAINED OF BACK PAIN UPON ARRIVAL, MEDICATED WITH TYLENOL. PT IS AXO X4, AND IS CURRENTLY ON BEDREST. PT IS CURRENTLY ON RA SATING 96-100%. PT HAS NO SBO. PT ON TELE, INTERMITTEN PERIODS OF A-FIB/NORMAL SINUS RYTHM. PT HAS A HX OF A-FIB. HEPARIN SCHEDULED TO START TODAY AT 0900. PT HAS A SMALL SKIN TEAR AND REDDENED AREA ON THE COCCYX, PT REFUSED PICTURE OF THE COCCYX STATING HER WAS TOO TIRED TO ROLL OVER FOR A PICTURE, BUT STATED HE WILL ALLOW A PICTURE. DAY SHIFT RN WILL BE NOTIFIED TO TAKE A PICTURE FOR HIS CHART. MEPILEX APPLIED TO THE AREA TO HELP PRESERVE THE SKIN INTEGRITY OF THE COCCYX. PT RECIEVED RT TREATMENT AROUND 0145. PT CURRENTLY RESTING IN BED, BED IN THE LOWEST POSITION AND CALL LIGHT IN HAND.
[2022-05-23 05:12] LABS: Bun/Creatinine Ratio 9.8 (12.0-20.0); Calcium, Blood 8.3 mg/dL (8.5-10.1); Creatinine, Blood 1.22 mg/dL (0.60-1.20); Potassium, Blood 3.8 mmol/L (3.5-5.5)
--- NOTE | 2022-05-23 17:18 | NUR ---
SHIFT SUMMARY PATIENT IS ALERT AND ORIENTED. PATIENT HAS HAD NO ACUTE EVENTS THIS SHIFT. VITAL SIGNS REVIEWED. PT/OT WORKED WITH PT AND PATIENT IS A ONE PERSON ASSIST. PATIENT HAS NOT COMPLAINED OF PAIN, NAUSEA, VOMITTING OR SOB THIS SHIFT. BED IN LOCKED AND LOWEST POSITION. CALL LIGHT IN PLACE. WILL MONITOR UNTIL SHIFT CHANGE.
[2022-05-24 05:28] LABS: Calcium, Blood 9.1 mg/dL (8.5-10.1); Creatinine, Blood 1.25 mg/dL (0.60-1.20); Potassium, Blood 3.6 mmol/L (3.5-5.5)
--- NOTE | 2022-05-24 06:44 | NUR ---
SHIFT SUMMARY PATIENT ALERT AND ORIENTED X4. CAN BE FORGETFUL AND IMPULSIVE. MEDICATED PER EMAR FOR PAIN. NO ACUTE ISSUES NOTED OVERNIGHT. CALL LIGHT WITHIN REACH. REPORT GIVEN TO ONCOMING RN.
--- NOTE | 2022-05-24 17:59 | NUR ---
SHIFT SUMMARY PATIENT IS ALERT AND ORIENTED BUT FORGETFUL. PATIENT HAS HAD NO ACUTE EVENTS THIS SHIFT. VITAL SIGNS REVIEWED. PATIENT HAS NOT COMPLAINED OF NAUSEA, VOMITTING, SOB THIS SHIFT. PATIENT COMPLAINS OF BACK PAIN AND MEDICATED PER EMAR. PATIENT WEARS OWN BACK BRACE FOR COMFORT AND SUPPORT. BED IN LOCKED AND LOWEST POSITION. CALL LIGHT IN PLACE. WILL MONITOR UNTIL SHIFT CHANGE.
[2022-05-25] MEDS ORDERED: SYMBICORT 16010.2 GM INH (00:13)
[2022-05-25] MEDS ORDERED: NEURONTIN300 MG PO (00:15)
[2022-05-25] MEDS ORDERED: IPRAT-ALBUT 0.5-3 ML INH (00:16)
[2022-05-25] MEDS ORDERED: PRED5 PO (00:17)
[2022-05-25] MEDS ORDERED: PRED1 PO (00:18)
[2022-05-25] MEDS ORDERED: SULFAMETHOXAZO1 EAC1 PO (00:21)
[2022-05-25] MEDS ORDERED: CEFU500T30 PO (00:23)
--- NOTE | 2022-05-25 04:26 | NUR ---
NIGHTSHIFT SUMMARY Patient AOx4, pleasant, steady gait, independent to BR, using FWW. Patient reports severe pain, tried heating pad, ineffective. MD ordered PRN oxycodone for pain, PRN effective. Patient resting comfortably all shift, respirations even/nonlabored. Right hand swollen, tender to the touch. IV ABX administred. Scattered bruising t/o body. Patient declined to take Heparin injection, reported the heparin caused all the bruises. Loss IV access. Vitals stable. Will continue to monitor.
[2022-05-25 05:14] LABS: BASOPHILS ABSOLUTE AUTO 0.02 K/mm3 (0.00-0.23); BASOPHILS PERCENT AUTO 0 % (0-2); EOSINOPHILS ABSOLUTE AUTO 0.07 K/mm3 (0.00-0.68); EOSINOPHILS PERCENT AUTO 1 % (0-6); Hematocrit 44.4 % (37.0-53.0); Hemoglobin 14.2 g/dL (13.5-17.5); IMMATURE GRAN ABSOLUTE AUTO 0.05 K/mm3 (0.00-0.10); IMMATURE GRAN PERCENT AUTO 1 % (0-1); LYMPHOCYTES ABSOLUTE AUTO 1.11 K/mm3 (0.84-5.20); LYMPHOCYTES PERCENT AUTO 10 % (21-46); MONOCYTES ABSOLUTE AUTO 0.89 K/mm3 (0.16-1.47); MONOCYTES PERCENT AUTO 8 % (4-13); Mean Corpuscular HGB 29.8 pg (26.0-34.0); Mean Corpuscular Volume 93 fL (80-100); NEUTROPHILS ABSOLUTE AUTO 8.86 K/mm3 (1.96-9.15); NEUTROPHILS PERCENT AUTO 81 % (41-73); Platelet Count 268 K/mm3 (150-400); RDW Coefficient Variation 13.6 % (11.7-14.2); RDW Standard Deviation 46.6 fL (35.1-46.3); Red Blood Cell Count 4.77 M/mm3 (4.30-5.90)
[2022-05-25 05:41] LABS: Bun/Creatinine Ratio 11.9 (12.0-20.0); Creatinine, Blood 1.35 mg/dL (0.60-1.20); Potassium, Blood 3.8 mmol/L (3.5-5.5)
--- NOTE | 2022-05-25 19:19 | NUR ---
SHIFT SUMMARY 86-YEAR-OLD MALE HERE WITH R HAND CELLULITIS. A&O X3, INDEPENDENT WITH 1-PERSON ASSIST FOR TRANSFERS DUE TO WEAKNESS AND BACK PAIN. L HAND PERIPHERAL IV PLACED THIS SHIFT. TELE NOTED TO SINUS RHYTHM, HR 69. PTN MEDS CRUSHED IN APPLESAUCE. MEDICATE BACK PAIN PER EMAR. BRUISING TO ARMS BILATERALLY, WITH R HAND SWELLING AND REDNESS THAT EXTENDS UP THE ARM. PTN HAD CT SCAN OF HAND TODAY AND CONSULT BY DR GILL, NPO AFTER MIDNIGHT FOR POSSIBLE PROCEDURE IN AM TO HAND. MEPHLEX ON BUTTOCKS REPLACED FOR PROTECTION, NO INJURY OR REDNESS, SKIN FRAGILE AND FLAKING. CONTINUE TO MONITOR.
[2022-05-26 04:51] LABS: BASOPHILS ABSOLUTE AUTO 0.02 K/mm3 (0.00-0.23); BASOPHILS PERCENT AUTO 0 % (0-2); EOSINOPHILS ABSOLUTE AUTO 0.26 K/mm3 (0.00-0.68); EOSINOPHILS PERCENT AUTO 2 % (0-6); Hematocrit 41.3 % (37.0-53.0); Hemoglobin 13.5 g/dL (13.5-17.5); IMMATURE GRAN ABSOLUTE AUTO 0.07 K/mm3 (0.00-0.10); IMMATURE GRAN PERCENT AUTO 1 % (0-1); LYMPHOCYTES ABSOLUTE AUTO 1.43 K/mm3 (0.84-5.20); LYMPHOCYTES PERCENT AUTO 13 % (21-46); MONOCYTES ABSOLUTE AUTO 0.89 K/mm3 (0.16-1.47); MONOCYTES PERCENT AUTO 8 % (4-13); Mean Corpuscular HGB 30.3 pg (26.0-34.0); Mean Corpuscular HGB Conc 32.7 g/dL (31.5-36.5); Mean Corpuscular Volume 93 fL (80-100); Mean Platelet Volume 10.1 fL (9.1-12.4); NEUTROPHILS ABSOLUTE AUTO 8.37 K/mm3 (1.96-9.15); NEUTROPHILS PERCENT AUTO 76 % (41-73); Platelet Count 258 K/mm3 (150-400); RDW Coefficient Variation 13.6 % (11.7-14.2); RDW Standard Deviation 46.5 fL (35.1-46.3); Red Blood Cell Count 4.45 M/mm3 (4.30-5.90); White Blood Cell Count 11.04 K/mm3 (4.00-11.30)
[2022-05-26 05:08] LABS: Creatinine, Blood 1.17 mg/dL (0.60-1.20); Potassium, Blood 3.7 mmol/L (3.5-5.5)
--- NOTE | 2022-05-26 10:58 | NUR ---
PT WITH C/O BURNING RIGHT HAND PAIN 8/. RIGHT HAND ELEVATED ON PILLOW, LARGE BLOOD SPOT NOTED ON ANTERIOR HAND THROUGH SOFT DRESSING, DRESSING REINFORCED WITH EXUDRY AND NEW KULWINDER WRAP. PT MEDICATED WITH FENTANYL, WILL NOTIFY DR. GILL AND AWAIT FURTHER ORDERS.
--- NOTE | 2022-05-26 11:18 | NUR ---
SHIFT SUMMARY PTN SITTING IN CHAIR, COVERED BY BLANKET EARLY, AWAITING A PROCEDURE AT 9 AM. PTN NPO SINCE MIDNNIGHT. BETA SHANICE GIVEN, OKAYED BY SURGERY. REPORT TO OR MAYDA Khan GIVEN. INFORMATION ABOUT TELEMETRY REPORT OF SUSTAINED SVT EARLY AM GIVEN, WELL ELEVATED BP. HOLD ANTIBIOTIC, TO BE GIVEN IN OR. PTN TAKEN TO OR AT APPROX 0845. SON PRESENT. PTN TO TRANSFER TO ROOM 229 POST SURGICAL PROCEDURE.
--- NOTE | 2022-05-26 12:15 | NUR ---
PT ARRIVED FROM PACU PT SLID FROM [facility] WITH SLIDE SHEET. PT PLACED ON 4L NASAL CANULA SATS DIP WHILE ASLEEP BUT MAINTAINING AT 90-92% WHILE ASLEEP. PT DENIED PAIN WHEN ASKED. ABLE TO MOVE FINGERS ON RIGHT HAND WELL, REPORTS FULL SENSATION. DRESSING APPEARS CDI AT THIS TIME. EXTREMETY ON PILLOW. PT GIVEN CALL LIGHT, HE REPORTS WANTING TO SLEEP AT THIS TIME. SCATTERED BRUISING OVER ENTIRE BODY. FINGERS ON RIGHT HAND PURPLE AND SWOLLEN. PT AAOX4 ON ASSESSMENT. LUNGS CLEAR T/O ON AUSCULTATION. TELEMTRY NOTIFIED OF PATIENTS TRANSFER.
--- NOTE | 2022-05-26 17:33 | NUR ---
SHIFT SUMMARY NO ACUTE CHANGES SINCE ARRIVAL TO UNIT, TITRATED PATIENT DOWN TO 1L NASAL CANULA, SATS 95% WHILE ASLEEP. PT CONTINUES TO DENY PAIN SINCE ARRIVAL, KEEPING HAND ELEVATED ON PILLOWS. CALL LIGHT IN REACH. PT STATES HE FEELS MUCH BETTER TODAY.
[2022-05-27 04:35] LABS: BASOPHILS ABSOLUTE AUTO 0.03 K/mm3 (0.00-0.23); BASOPHILS PERCENT AUTO 0 % (0-2); EOSINOPHILS PERCENT AUTO 0 % (0-6); Hematocrit 40.1 % (37.0-53.0); Hemoglobin 12.8 g/dL (13.5-17.5); IMMATURE GRAN ABSOLUTE AUTO 0.08 K/mm3 (0.00-0.10); IMMATURE GRAN PERCENT AUTO 1 % (0-1); LYMPHOCYTES ABSOLUTE AUTO 1.34 K/mm3 (0.84-5.20); LYMPHOCYTES PERCENT AUTO 10 % (21-46); MONOCYTES ABSOLUTE AUTO 0.61 K/mm3 (0.16-1.47); MONOCYTES PERCENT AUTO 5 % (4-13); Mean Corpuscular HGB Conc 31.9 g/dL (31.5-36.5); Mean Corpuscular Volume 94 fL (80-100); Mean Platelet Volume 10.2 fL (9.1-12.4); NEUTROPHILS ABSOLUTE AUTO 11.57 K/mm3 (1.96-9.15); NEUTROPHILS PERCENT AUTO 85 % (41-73); Platelet Count 254 K/mm3 (150-400); RDW Coefficient Variation 13.4 % (11.7-14.2); RDW Standard Deviation 46.4 fL (35.1-46.3); Red Blood Cell Count 4.26 M/mm3 (4.30-5.90); White Blood Cell Count 13.63 K/mm3 (4.00-11.30)
--- NOTE | 2022-05-27 06:06 | NUR ---
SHIFT SUMMARY POD1 I&D OF R HAND. R HAND WITH ABD PAD AND KULWINDER WRAP REMAIN CDI. PT REPORTS FULL SENSATION. MINIMAL PAIN. REPORTS CHRONIC BACK PAIN. PAIN MANAGED WITH 1 DOSE OF TORADOL AND LOLLY (5MG). PT HAS BEEN COMFORTABLE T/O SHIFT. SLEPT GOOD. AMBULATES FROM BED TO BATHROOM WITH FWW AND 1PA. VOIDING. TOLERATING PO INTAKE. DENIES N/V. CALL LIGHT WITHIN REACH. WILL PROVIDE REPORT TO ONCOMING NURSE.
--- NOTE | 2022-05-27 12:18 | NUR ---
RA DRESSING CHANGED BY DR. GILL, WOUND CLEANSED WITH HYDROGEN PEROXIDE, COVERED W/ ABD PAD AND SECURED WITH ACEWRAP, ACEWRAP NOTED WRAPPED HIGHER ON ARM TO PLACE COMPRESSION ON AREAS W/ EDEMA.
--- NOTE | 2022-05-28 05:28 | NUR ---
SHIFT SUMMARY NO ACUTE CHANGES OVERNIGHT. PT REPORTS PAIN ON HIS BACK (CHRONIC) MEDICATED OXICODONE BEFORE BED. PT REFUSE STOOL SOFTNER, STATING HE HAD LOOSE BM YESTERDAY. TOLERATING PO INTAKE. DENIES N/V. PASSING FLATUS. VSS. AMBULATES WIHT FWW AND SBA. DRESSING CHANGED ON R ARM/HAND. CALL LIGHT WITHIN REACH. WILL NOTIFY ONCOMING NURSE.
[2022-05-28 09:03] LABS: BASOPHILS ABSOLUTE AUTO 0.03 K/mm3 (0.00-0.23); BASOPHILS PERCENT AUTO 0 % (0-2); EOSINOPHILS ABSOLUTE AUTO 0.35 K/mm3 (0.00-0.68); EOSINOPHILS PERCENT AUTO 2 % (0-6); Hematocrit 41.3 % (37.0-53.0); Hemoglobin 12.6 g/dL (13.5-17.5); IMMATURE GRAN ABSOLUTE AUTO 0.08 K/mm3 (0.00-0.10); IMMATURE GRAN PERCENT AUTO 1 % (0-1); LYMPHOCYTES ABSOLUTE AUTO 2.28 K/mm3 (0.84-5.20); LYMPHOCYTES PERCENT AUTO 15 % (21-46); MONOCYTES ABSOLUTE AUTO 0.99 K/mm3 (0.16-1.47); MONOCYTES PERCENT AUTO 7 % (4-13); Mean Corpuscular HGB 29.2 pg (26.0-34.0); Mean Corpuscular HGB Conc 30.5 g/dL (31.5-36.5); Mean Corpuscular Volume 96 fL (80-100); Mean Platelet Volume 10.2 fL (9.1-12.4); NEUTROPHILS ABSOLUTE AUTO 11.26 K/mm3 (1.96-9.15); NEUTROPHILS PERCENT AUTO 75 % (41-73); Platelet Count 233 K/mm3 (150-400); RDW Coefficient Variation 13.6 % (11.7-14.2); RDW Standard Deviation 48.6 fL (35.1-46.3); Red Blood Cell Count 4.31 M/mm3 (4.30-5.90); White Blood Cell Count 14.99 K/mm3 (4.00-11.30)
[2022-05-28 09:21] LABS: Vancomycin, Random 6.9 ug/mL
--- NOTE | 2022-05-28 12:34 | NUR ---
VISITING WITH SON, DENIES ANY PAIN OR ANY DISCOMFORT AT THIST TIME.
--- NOTE | 2022-05-28 16:19 | NUR ---
BILATERAL KNEE HIGH HOA HOSE APPLIED PER DR. CEDEÑO.
--- NOTE | 2022-05-28 17:58 | NUR ---
SUMMARY DENIED ANY PAIN ON BACK OR R HAND TODAY, OOB TO CHAIR, AMBULATES TO THE BATHROOM WITH STANDBY ASSIST AND WALKER, TOLERATING WELL, LOW GRADE TEMP TODAY DR. CEDEÑO AWARE, R HAND DRESSING CHANGED TODAY PER DR. VINES'S WOUND CARE ORDERS, HOA'S PLACED ON BLE'S, NO ACUTE CHANGES THIS SHIFT.
--- NOTE | 2022-05-29 06:08 | NUR ---
POD 3 S/P RIGHT HAND I&D. PT VSS T/O NIGHT, HR SINUS 70-80'S PER TELE MONITOR. PT DENIED PAIN TO RUE, DRESSING CDI, KULWINDER WRAP TO RUE IN PLACE R/T SWELLING. BAKC PAIN MGD W/TYLENOL AND REPOSITIONING PER PT REQ. PT UP OOB W/FWW+SBA. PLAN TO D/C HOME W/HH.
[2022-05-29 06:26] LABS: BASOPHILS ABSOLUTE AUTO 0.02 K/mm3 (0.00-0.23); BASOPHILS PERCENT AUTO 0 % (0-2); EOSINOPHILS ABSOLUTE AUTO 0.36 K/mm3 (0.00-0.68); EOSINOPHILS PERCENT AUTO 3 % (0-6); Hematocrit 37.7 % (37.0-53.0); Hemoglobin 12.1 g/dL (13.5-17.5); IMMATURE GRAN ABSOLUTE AUTO 0.06 K/mm3 (0.00-0.10); IMMATURE GRAN PERCENT AUTO 1 % (0-1); LYMPHOCYTES ABSOLUTE AUTO 1.51 K/mm3 (0.84-5.20); LYMPHOCYTES PERCENT AUTO 13 % (21-46); MONOCYTES ABSOLUTE AUTO 0.88 K/mm3 (0.16-1.47); MONOCYTES PERCENT AUTO 7 % (4-13); Mean Corpuscular HGB Conc 32.1 g/dL (31.5-36.5); Mean Corpuscular Volume 94 fL (80-100); Mean Platelet Volume 10.4 fL (9.1-12.4); NEUTROPHILS ABSOLUTE AUTO 9.18 K/mm3 (1.96-9.15); NEUTROPHILS PERCENT AUTO 76 % (41-73); Platelet Count 215 K/mm3 (150-400); RDW Coefficient Variation 13.5 % (11.7-14.2); RDW Standard Deviation 46.6 fL (35.1-46.3); Red Blood Cell Count 4.03 M/mm3 (4.30-5.90); White Blood Cell Count 12.01 K/mm3 (4.00-11.30)
[2022-05-29 07:06] LABS: Bun/Creatinine Ratio 12.4 (12.0-20.0); Calcium, Blood 8.2 mg/dL (8.5-10.1); Creatinine, Blood 1.05 mg/dL (0.60-1.20); Potassium, Blood 3.6 mmol/L (3.5-5.5)
--- NOTE | 2022-05-29 14:53 | NUR ---
DR. GILL IN ROOM AT ABOUT 0845, DRESSING CHANGE COMPLETED TO R ARM.
--- NOTE | 2022-05-29 17:09 | NUR ---
SUMMARY: PT IS POD3 I&D OF R ARM. A/O, USING CALL LIGHT. IMPULSIVE AT TIMES, BED ALARM ON FOR SAFETY. R ARM DRESSING IS CDI TONIGHT. PT UP TO BATHROOM FREQUENTLY AND VOIDS SMALL AMOUNTS, SBA WITH FWW. SOME SOB ON EXERTION, RECOVERS EASILY. SP02 SPOT CHECKED X2 TODAY AND OXIMETRY ABOVE 90% ON RA. PT SWITCHED TO MECHANICAL SOFT DIET FOR LUNCH AND REPORTED THAT IT WAS EASIER TO EAT, SEE DIETARY NOTE. NO ACUTE SAFETY CONCERNS.
--- NOTE | 2022-05-30 06:38 | NUR ---
POD 4 S/P RUE I&D. PT VSS T/O NIGHT. O2 PLACED EARLY IN SHIFT, PT REP SOB IMPROVED AND DENIED NEED O2 FOR MAJORITY OF SHIFT, DENIED NEED FOR PRN RT TX. DRESSING CDI. PT DENIED RUE PAIN, MED FOR CHRONIC BACK PAIN, W/TRAMADOL AND OXYCODONE, PT REPOSITIONED TOR. RUE ELEVATED ON PILLOW, KULWINDER WRAP IN PLACE TO ARM FOR COMPRESSION. CAP REFILL WNL, PT DENEID CHANGES IN SENSATION. PT AMB W/FWW+SBA, TOR BETTER THIS SHIFT. PLAN TO DC HOME W/HH.
[2022-05-30 08:28] LABS: BASOPHILS ABSOLUTE AUTO 0.05 K/mm3 (0.00-0.23); BASOPHILS PERCENT AUTO 1 % (0-2); EOSINOPHILS ABSOLUTE AUTO 0.26 K/mm3 (0.00-0.68); EOSINOPHILS PERCENT AUTO 2 % (0-6); Hematocrit 37.3 % (37.0-53.0); Hemoglobin 12.1 g/dL (13.5-17.5); IMMATURE GRAN ABSOLUTE AUTO 0.07 K/mm3 (0.00-0.10); IMMATURE GRAN PERCENT AUTO 1 % (0-1); LYMPHOCYTES ABSOLUTE AUTO 1.56 K/mm3 (0.84-5.20); LYMPHOCYTES PERCENT AUTO 14 % (21-46); MONOCYTES ABSOLUTE AUTO 0.75 K/mm3 (0.16-1.47); MONOCYTES PERCENT AUTO 7 % (4-13); Mean Corpuscular HGB 30.1 pg (26.0-34.0); Mean Corpuscular HGB Conc 32.4 g/dL (31.5-36.5); Mean Corpuscular Volume 93 fL (80-100); Mean Platelet Volume 9.9 fL (9.1-12.4); NEUTROPHILS ABSOLUTE AUTO 8.42 K/mm3 (1.96-9.15); NEUTROPHILS PERCENT AUTO 76 % (41-73); Platelet Count 214 K/mm3 (150-400); RDW Coefficient Variation 13.5 % (11.7-14.2); RDW Standard Deviation 46.5 fL (35.1-46.3); Red Blood Cell Count 4.02 M/mm3 (4.30-5.90); White Blood Cell Count 11.11 K/mm3 (4.00-11.30)
[2022-05-30 08:45] LABS: Albumin, Blood 2.1 g/dL (3.4-5.0); Anion Gap 6 mmol/L (6-16); Blood Urea Nitrogen 11 mg/dL (8-24); Bun/Creatinine Ratio 11.6 (12.0-20.0); CO2, Blood 29 mmol/L (21-32); Calcium, Blood 8.3 mg/dL (8.5-10.1); Chloride, Blood 109 mmol/L (98-108); Creatinine, Blood 0.95 mg/dL (0.60-1.20); Glomerular Filtration Rate 77 (60-); Glucose, Blood 78 mg/dL (70-99); Phosphorus, Blood 1.7 mg/dL (2.5-4.9); Potassium, Blood 3.7 mmol/L (3.5-5.5); Sodium, Blood 144 mmol/L (136-145)
[2022-05-30 08:46] LABS: Vancomycin, Trough 13.2 ug/mL (5.0-10.0)
--- NOTE | 2022-05-30 17:43 | NUR ---
SHIFT SUMMARY POD 4 I&D R HAND DRESSING CHANGED TODAY AT 1700. PT TOLERATED WELL. PT HAS STRONG PULSE IN RIGHT HAND, CAP REFILL <3 AND MOVES ALL FINGERS. HE CONTINUES TO DENY PAIN. PT AMBULATES WELL VOIDING REGULARILY. PLAN IS FOR PATIENT TO DISCHARGE IN THE MORNING HIS RIDE WILL BE ABLE TO PICK HIM UP IN THE AM.
--- NOTE | 2022-05-31 02:52 | NUR ---
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 PT IS ASYMPTOMATIC. ALERT AND ORIENTED. COMFORTABLE IN BED. BACK PAIN IMPROVED. HE WAS GIVEN OXYCODONE AND ULTRAM.
--- NOTE | 2022-05-31 05:48 | NUR ---
SHIFT SUMMARY S/P R HAND I&D. PT REPORTS NO PAIN ON R HAND BUT C/O CHRONIC BACK PAIN LAST NIGHT. PAIN MANAGED WITH ULTRAM AND 5MG ROXICODONE WITH RELIEF ON MEDS AND REPOSITIONING. AOX3. AMBULATES 1 SBA WITH FWW. IV ABX ADMINISTERED. TOLERATES PO INTAKE, DENIES NAUSEA AND VOMITING. R HAND WITH ABD PAD AND KULWINDER WRAPPED. CALL LIGHT WITHIN REACH. WILL PROVIDE REPORT TO ONCOMING NURSE.
[2022-05-31] MEDS ORDERED: AMOX-CLAV 875-1 EAC2 PO (11:19)
[2022-05-31] MEDS ORDERED: VISBIOME 112.51 EACH PO (11:20)
--- NOTE | 2022-05-31 12:09 | NUR ---
DISCHARGE: PACKET PRINTED AND PT MEDICATED. IV DC'C WNL, TIP INTACT. DRESSING CHANGED AT R ARM, PER ORDERS. CAREGIVER TRICE, WATCHED THE DRESSING CHANGE AND THIS RN TAUGHT. TELE DC'D. PT LEFT UNIT AT ABOUT 1145 VIA WHEELCHAIR WITH OSCAR IRBY.
--- NOTE | 2022-05-31 12:53 | NUR ---
NEW SCRIPTS FOR ANTIBIOTICS AND PROBIOTICS FAXED TO [facility] ON [address].
== END 2022-05-31 12:00 | disposition home health service (06) | DRG 513 ==
LOC: ER 18:27 → MEDS 23:16 → SURS 23:16 → MEDS 23:21 → SURS 05-26 10:13
PROVIDERS: Emergency Medicine; Internal Medicine; Orthopaedic Surgery; ADMIT Internal Medicine
PROC: 0LB70ZZ Excision of Right Hand Tendon, Open Approach (ICD-10-PCS; principal; 2022-05-26 09:00)
DX: M65.141 Other infective (teno)synovitis, right hand (principal); J18.9 Pneumonia, unspecified organism; J96.01 Acute respiratory failure with hypoxia; L03.113 Cellulitis of right upper limb; K50.90 Crohn's disease, unspecified, without complications; I50.22 Chronic systolic (congestive) heart failure; J44.1 Chronic obstructive pulmonary disease with (acute) exacerbation; J44.0 Chronic obstructive pulmonary disease with (acute) lower respiratory infection; N17.9 Acute kidney failure, unspecified; Z51.5 Encounter for palliative care; I11.0 Hypertensive heart disease with heart failure; I48.0 Paroxysmal atrial fibrillation; G89.29 Other chronic pain; M54.9 Dorsalgia, unspecified; Z90.89 Acquired absence of other organs; Z98.41 Cataract extraction status, right eye; Z98.42 Cataract extraction status, left eye; Z91.011 Allergy to milk products; Z91.013 Allergy to seafood; Z91.018 Allergy to other foods; Z88.8 Allergy status to other drugs, medicaments and biological substances; Z79.899 Other long term (current) drug therapy
CPT/HCPCS: 36415; 71045; 71260; 73201; 76882; 80048; 80053; 80069; 80202; 83880; 85025; 85651; 86140; 86141; 87071; 87075; 87205; 88305; 94640; 94644; 94664; 94760; 94762; 96374; 96375; 97110; 97116; 97162; 97166; 97530; 97535; 99284-25; A9270; J0690; J1100; J1170; J1644; J1650; J1885; J2370; J2405; J2543; J2704; J2930; J3010; J3370; J7040; Q9967

== ENCOUNTER 2022-05-31 12:33 | Emergency (ER) | payer OTHER ==
[~2022-05-31] VITALS: Ht 167.6 cm; Wt 56.7 kg
[~2022-05-31 12:33] MED LIST changes: +AMOX-CLAV 875-1 EAC2 PO; +CEFU500T30 PO; +IPRAT-ALBUT 0.5-3 ML INH; +NEURONTIN300 MG PO; +SULFAMETHOXAZO1 EAC1 PO; +SYMBICORT 16010.2 GM INH; +VISBIOME 112.51 EACH PO
== END 2022-05-31 17:25 | disposition home or self-care (01) ==
LOC: ER 12:33
DX: S51.011A Laceration without foreign body of right elbow, initial encounter (principal); I10 Essential (primary) hypertension; J44.9 Chronic obstructive pulmonary disease, unspecified; W18.09XA Striking against other object with subsequent fall, initial encounter; Z91.011 Allergy to milk products; Z91.013 Allergy to seafood; Z91.018 Allergy to other foods; Z79.899 Other long term (current) drug therapy; Z79.52 Long term (current) use of systemic steroids
CPT/HCPCS: 73090

== ENCOUNTER → 2022-07-09 | Outpatient (CLI) | payer OTHER ==
[~2022-07-09] MED LIST changes: +SYMBICORT 160-4.6 GM PO
[2022-07-09 19:00] LABS: Appearance, Urine Clear (Clear); Bilirubin, Urine Neg (Neg); Blood, Urine 1+ (Neg); Color, Urine Yellow (P-Yellow); Glucose Qualitative, Urine Neg (Neg); Ketones, Urine Neg (Neg); Leukocyte Esterase, Urine Neg (Neg); Nitrite, Urine Neg (Neg); Protein, Urine 1+ (Neg); Urobilinogen, Urine NORM (Normal)
[2022-07-09 19:08] LABS: Bacteria Rare /hpf; Squamous Epithelial Cells Rare /hpf (Few); White Blood Cells, Urine 0-2 /hpf (0-5)
== END | disposition home or self-care (01) ==
LOC: LAB SHORT 15:39
PROVIDERS: Hospitalist
DX: R30.0 Dysuria (principal)
CPT/HCPCS: 81001

== ENCOUNTER 2022-10-30 13:49 | Inpatient (IN) | payer OTHER ==
[~2022-10-30] VITALS: Ht 167.6 cm; Wt 39.4 kg
[~2022-10-30 13:49] MED LIST changes: +PRED20 PO
[2022-10-30 14:24] LABS: BASOPHILS ABSOLUTE AUTO 0.05 K/mm3 (0.00-0.23); BASOPHILS PERCENT AUTO 1 % (0-2); EOSINOPHILS ABSOLUTE AUTO 0.02 K/mm3 (0.00-0.68); EOSINOPHILS PERCENT AUTO 0 % (0-6); Hematocrit 36.1 % (37.0-53.0); Hemoglobin 11.7 g/dL (13.5-17.5); IMMATURE GRAN ABSOLUTE AUTO 0.06 K/mm3 (0.00-0.10); IMMATURE GRAN PERCENT AUTO 1 % (0-1); LYMPHOCYTES ABSOLUTE AUTO 1.66 K/mm3 (0.84-5.20); LYMPHOCYTES PERCENT AUTO 16 % (21-46); MONOCYTES ABSOLUTE AUTO 0.91 K/mm3 (0.16-1.47); MONOCYTES PERCENT AUTO 9 % (4-13); Mean Corpuscular HGB 29.6 pg (26.0-34.0); Mean Corpuscular HGB Conc 32.4 g/dL (31.5-36.5); Mean Corpuscular Volume 91 fL (80-100); Mean Platelet Volume 10.5 fL (9.1-12.4); NEUTROPHILS ABSOLUTE AUTO 7.96 K/mm3 (1.96-9.15); NEUTROPHILS PERCENT AUTO 75 % (41-73); Platelet Count 193 K/mm3 (150-400); RDW Coefficient Variation 14.8 % (11.7-14.2); RDW Standard Deviation 49.5 fL (35.1-46.3); Red Blood Cell Count 3.95 M/mm3 (4.30-5.90); White Blood Cell Count 10.66 K/mm3 (4.00-11.30)
[2022-10-30 14:33] LABS: Albumin, Blood 2.2 g/dL (3.4-5.0); Albumin/Globulin Ratio 0.6 (0.8-1.8); Bun/Creatinine Ratio 10.7 (12.0-20.0); Calcium, Blood 8.8 mg/dL (8.5-10.1); Creatinine, Blood 1.4 mg/dL (0.60-1.20); Magnesium, Blood 1.9 mg/dL (1.6-2.4); Potassium, Blood 3.8 mmol/L (3.5-5.5); Total Protein, Blood 6.2 g/dL (6.4-8.2)
[2022-10-30 15:26] LABS: Influenza A, PCR NEGATIVE (NEGATIVE); Influenza B, PCR NEGATIVE (NEGATIVE); Resp Syncytial Virus, PCR NEGATIVE (NEGATIVE); SARS-Cov-2 (COVID-19) PCR, MMC NEGATIVE (NEGATIVE)
--- NOTE | 2022-10-31 04:13 | NUR ---
SHIFT SUMMARY 88 YR M ADMITTED ON 10/30/22 FOR ACUTE RESPIRATORY FAILURE/BILATERAL LOWER LOBE PNEUMONIA. FULL CODE. PT TRANSFERED TO THIS UNIT FROM THE ED AT BEGINNING OF SHIFT. NO ACUTE CHANGES OVERNIGHT. PT HAS A WET, PRODUCTIVE COUGH BUT DOES NOT APPEAR TO BE IN DISTRESS AT THIS TIME. HE STATES THAT HE HAS A HX OF DIARRHEA BUT IS SOMETIMES UNABLE TO MAKE IT TO THE BATHROOM. HE IS ABLE TO CALL APPROPRIATELY FOR ASSISTANCE, BUT DOES GET CONFUSED AT TIMES. HE C/O HIS FEET FEELING HOT AND HE HAS 2+ PITTING EDEMA IN HIS RADHA ANKLES. HE IS A VERY THIN MAN WITH BONY PROMINENCES. A MEPILEX WAS PLACED ON HIS TAILBONE IT IS PROTRUDING AND A DANGER FOR SKIN BREAKDOWN. REPOSITIONING Q2 FOR COMFORT AND PREVENTION OF PRESSURE ULCERS.
--- NOTE | 2022-10-31 05:03 | NUR ---
MEPILEX WAS PLACED ON BONY PROMINENCE AT PT'S TAILBONE TO PREVENT SKIN BREAKDOWN. THIS WAS DONE AFTER HIS ASSESSMENT WAS RECORDED SO IT WAS NOT DOCUMENTED IN THE ASSESSMENT.
[2022-10-31 06:08] LABS: Bun/Creatinine Ratio 13.9 (12.0-20.0); Calcium, Blood 8.2 mg/dL (8.5-10.1); Creatinine, Blood 1.22 mg/dL (0.60-1.20)
--- NOTE | 2022-10-31 17:16 | NUR ---
PT IS A/OX3, FORGETFULL AT TIMES. THE PT IS UP WITH STANDBY ASSIST. PT HAS MOIST COUGH. PTS O2 SAT'S > 90% ON RA. PT WAS UP IN THE CHAIR FOR MOST OF THE MORNING. PT WAS GIVEN COUGH SYRUP PER HIS REQUEST. THE PT WAS MEDICATED FOR BACK PAIN X1 WITH TYLENOL. PT RESTING IN BED AT THIS TIME. CALL LIGHT IN REACH, WILL CONTINUE TO MONITOR AND ASSESS FOR CHANGES
--- NOTE | 2022-11-01 04:12 | NUR ---
SHIFT SUMMARY 88 YR M ADMITTED ON 10/30/22 FOR ACUTE RESPIRATORY FAILURE AND BLL PNEUMONIA. FULL CODE. NO ACUTE CHANGES THIS SHIFT. PT IS STILL STRUGGLING WITH COUGHING WHEN DRINKING EVEN THOUGH HIS LIQUIDS ARE HONEY THICK. HE STATES THAT WHEN HE IS HOME HE DRINKS HOT TEA TO BREAK UP HIS MUCOUS AND THIS ENABLES HIM TO EAT AND DRINK WITHOUT COUGHING AND GAGGING. @0420 THIS SHIFT, PT C/O PAIN AND TINGLING IN HIS FEET. THIS NURSE ADVISED THAT SHE WOULD PASS ON THE INFO TO DAY SHIFT SO THE ROUNDING DOCTOR CAN ADDRESS THE ISSUE. FOR NOW, HIS FEET HAVE BEEN ELEVATED AND HE STATES THAT THIS OFFERS SOME RELIEF.
[2022-11-01 06:20] LABS: Bun/Creatinine Ratio 20.3 (12.0-20.0); Calcium, Blood 8.2 mg/dL (8.5-10.1); Creatinine, Blood 1.33 mg/dL (0.60-1.20); Potassium, Blood 3.6 mmol/L (3.5-5.5)
--- NOTE | 2022-11-01 16:35 | NUR ---
CASE CONF WITH RN, REPORTS PT DOING OK, WAITING FOR PLACEMENT HE CANNOT GO HOME, HE IS UNABLE TO CARE FOR HIMSELF, APPETITE REMAINS POOR AND HAS NO SYMPTOM COMPLAINTS AND IS SLEEPING OK AT NIGHT. ATTEMPTED TO MAKE A VISIT, PT IS ASLEEP UPON ENTERING THE ROOM. HOB IS ELEVATED, FACE IR RELAXED AND HE APPEARS TO BE CPOMFORTABLE. PT DOES NOT WAKE UP TO MY VOICE, WILL LET PT REST AND ATTEMPT ANOTHER VISIT AT A LATER TIME.
--- NOTE | 2022-11-01 18:20 | NUR ---
SHIFT SUMMARY: PT A&O X3. PT HAS BEEN PLEASANT AND COOPERATIVE WITH CARE. PT HAD TAKEN OUT IV THIS AM. PER DR. ANKUSH KELLER TO SWITCH TO PO ABX. PLAN TO D/C TO [facility] PT IS UNABLE TO CARE FOR SELF AT HOME. PT HAD MEETING WITH [facility] WORKERS THIS EVENING. PT HAS HAD SMALL AMOUNT OF COUGH THIS SHIFT. SPEECH THERAPY REASSESSED PT THIS AM. PT TO STAY WITH MECHANICAL DIET AND HONEY THICK LIQUIDS. NO COMPLAINTS OF DIARRHEA. PT ABLE TO AMBULATE TO BATHROOM W/ONE PERSON ASSIST. SM AMOUNT OF PAIN IN FEET. FLOATED FEET ON PILLOW AND HAS NO C/O PAIN SINCE. MEDS CRUSHED IN . CURRENTLY HAS NO IV. WILL REPORT TO ONCOMING NURSE. CALL LIGHT IN REACH. BED IN LOWEST POSITION. WILL CONTINUE TO MONITOR.
[2022-11-02 05:26] LABS: Bun/Creatinine Ratio 19.8 (12.0-20.0); Calcium, Blood 8.3 mg/dL (8.5-10.1); Creatinine, Blood 1.11 mg/dL (0.60-1.20); Potassium, Blood 3.8 mmol/L (3.5-5.5)
--- NOTE | 2022-11-02 05:26 | NUR ---
PT IS A&O3-[address] OVERNIGHT, DC PLANNING TO [facility] TODAY, NO COMPLAINTS OF PAIN OR DISCOMFORT THIS SHIFT, VSS, CONTINUE POC
--- NOTE | 2022-11-02 16:49 | NUR ---
SHIFT SUMMARY PT AOX2-3, MAKES HIS NEEDS KNOWN. THERE ARE NO ACUTE CHANGES THIS SHIFT. HE WAS POTENTIALLY GOING TO DISCHARGE TODAY BUT THAT PLAN CHANGED AND IT STILL LOOKS LIKE IT'LL BE ON FRIDAY. HE IS [place] AND ON [employer]UTIONS. HE IS TO TAKE HIS MEDICATIONS CRUSHED IN APPLESAUCE. BED LIGHT IN LOWEST POSITION AND CALL LIGHT WITHIN REACH. WILL REPORT TO ONCOMING NURSE.
--- NOTE | 2022-11-03 05:34 | NUR ---
SHIFT SUMMARY PT IS A&O2-3, SB TO BR, RA, PT HAD 2 LOOSE BM'S THIS SHIFT, NO COMPLAINTS OF PAIN OR ACUTE OVERNIGHT EVENTS, VSS, CONTINUE POC
--- NOTE | 2022-11-03 18:17 | NUR ---
SHIFT SUMMARY NO ACUTE CHANGES THIS SHIFT. PT HAS BEEN PLEASANT AND COOPERATIVE WITH CARE. HE IS EAGER TO LEAVE THE HOSPITAL AND GO TO THE [facility]. PLAN IS FOR HIM TO POTENTIALLY GO TOMORROW. WILL REPORT TO ONCOMING NURSE.
--- NOTE | 2022-11-04 04:39 | NUR ---
PATIENT IS ALERT AND ORIENTED X 2-3, COOPERATIVE WITH CARE. LUNGS ARE COARSE, NO COUGH. TAKES MEDS CRUSHED IN SAUCE. HAD A MOMENT OF CONFUSION, GOT UP IN THE MIDDLE OF THE NIGHT, LOOKING THROUGH BAGS AND BELIEVED STAFF WAS GOING THROUGH HIS BELONGINGS. AFTER LOCATING HIS PERSONAL ITEMS, PATIENT SETTLED BACK INTO BED. HTN, AND LOW GRAVE FEVER TREATED PER OCT. NO OTHER ISSUES TO REPORT.
[2022-11-04] MEDS ORDERED: VISBIOME 112.51 EACH PO (12:33)
[2022-11-04] MEDS ORDERED: CEFP200 PO (12:33)
[2022-11-04] MEDS ORDERED: SULTRIDS PO (12:34)
[2022-11-04] MEDS ORDERED: SYMBICORT 160-4.6 GM INH (12:34)
--- NOTE | 2022-11-04 14:43 | NUR ---
DISCHARGE NOTE PT DISCHARGED TO A LOCAL [facility], PICKED UP BY [facility]. PT PROVIDED DISCHARGE INFORMATION AND EDUCATION, ALONG WITH MED LIST TO PROVIDER TO [facility].
== END 2022-11-04 14:41 | disposition hospice, inpatient (51) | DRG 177 ==
LOC: ER 13:49 → MEDS 13:50 → PCU 13:50 → EDBD 17:34 → MEDS 17:34 → EDBD 11-04 14:41 → MEDS 11-04 14:41
PROVIDERS: Emergency Medicine; Student in an Organized Health Care Education/Training Program; ADMIT Internal Medicine
DX: J15.0 Pneumonia due to Klebsiella pneumoniae (principal); E43 Unspecified severe protein-calorie malnutrition; J96.01 Acute respiratory failure with hypoxia; I50.22 Chronic systolic (congestive) heart failure; R64 Cachexia; Z68.1 Body mass index [BMI] 19.9 or less, adult; J44.1 Chronic obstructive pulmonary disease with (acute) exacerbation; J44.0 Chronic obstructive pulmonary disease with (acute) lower respiratory infection; N17.9 Acute kidney failure, unspecified; J15.212 Pneumonia due to Methicillin resistant Staphylococcus aureus; I11.0 Hypertensive heart disease with heart failure; R13.10 Dysphagia, unspecified; R93.3 Abnormal findings on diagnostic imaging of other parts of digestive tract; N28.89 Other specified disorders of kidney and ureter; I48.0 Paroxysmal atrial fibrillation; Z20.822 Contact with and (suspected) exposure to COVID-19; Z91.011 Allergy to milk products; Z91.013 Allergy to seafood; Z91.018 Allergy to other foods; Z88.8 Allergy status to other drugs, medicaments and biological substances; Z79.52 Long term (current) use of systemic steroids; Z79.899 Other long term (current) drug therapy; Z90.89 Acquired absence of other organs; Z87.891 Personal history of nicotine dependence
CPT/HCPCS: 0241U; 36415; 71046; 71260; 80048; 80053; 83605; 83735; 83880; 84484; 85025; 87040; 87070; 87077; 87186; 87205; 92526; 92610; 93005; 93010; 94640; 94664; 94760; 94761; 96365-59; 96375-59; 97110; 97110-CQ; 97116; 97116-CQ; 97161; 97530; 99285-25; A9270; J0456; J0696; J1644; J7030; J7050; J7120; J7512; Q9967